=== PATIENT | female | born 1945 | race Caucasian/White ===

== ENCOUNTER 2016-12-03 06:54 | Day surgery (SDC) | payer MEDICARE, OTHER, MEDICAID ==
[2016-12-03] MEDS ORDERED: Lactated Ringers 1,000 ML IV SCH (07:00)
[2016-12-03] MEDS ORDERED: Lidocaine 1%/Sod Bicarbonate in NS 8.4% 1 ML Syringe PRN (07:00)
[2016-12-03] MEDS ORDERED: Sodium Chloride 0.9% 10 ML Syringe FLUSH PRN (07:00)
[2016-12-03] MEDS ORDERED: Propofol 200 MG/20 ML SDV ONE (07:18)
[2016-12-03] MEDS ORDERED: fentaNYL 100 MCG/2 ML SDV ONE (07:18)
--- NOTE | 2016-12-03 07:29 | PCM.PREANE ---
Preanesthetic Assessment - Procedure Proposed Procedure: Diagnostic EGD - Anesthesia/Transfusion/Family Hx Anesthesia History: Prior Anesthesia Without Reaction Family History of Anesthesia Reaction: No Transfusion History: Prior Transfusion Without Reaction - Review of Systems General: No Symptoms Pulmonary: Other (COPD, ENID with CPAP, ) Cardiovascular: Other (HTN, HLD) Gastrointestinal: Difficulty Swallowing, Other (GERD) Neurological: No Symptoms Other: Reports: Diabetes, Thyroid Problems - Physical Assessment NPO Status Date: 12/02/16 NPO Status Time: 22:00 Pulse: 99 O2 Sat by Pulse Oximetry: 95 Respiratory Rate: 18 Blood Pressure: 132/55 Temperature: 36.9 C Height: 1.52 m Weight: 102.965 kg ASA Class: 3 Mental Status: Alert & Oriented x3 Airway Class: Mallampati = 1 Dentition: Reports: Dentures (upper), Broken Tooth/Teeth (lower multiple missing and broken, states she is getting them pulled soon) Thyro-Mental Finger Breadths: 3 Mouth Opening Finger Breadths: 3 ROM/Head Extension: Full Lungs: Clear to Auscultation, Normal Respiratory Effort Cardiovascular: Regular Rate, Regular Rhythm - Allergies Allergies/Adverse Reactions: Allergies Allergy/AdvReac Type Severity Reaction Status Date / Time codeine Allergy Hives Verified 12/02/16 14:52 - Blood Blood Available: No Product(s) Available: None - Anesthesia Plan Pre-Op Medication Ordered: None Beta Juanpablo: Carvedilol Med Last Dose Date: 12/03/16 Med Last Dose Time: 06:00 - Acknowledgements Anesthesia Type Planned: MAC Pt an Appropriate Candidate for the Planned Anesthesia: Yes Alternatives and Risks of Anesthesia Discussed w Pt/Guardian: Yes Pt/Guardian Understands and Agrees with Anesthesia Plan: Yes PreAnesthesia Questionnaire HEENT History: Reports: Allergic Rhinitis, Impaired Vision Other HEENT History: wears glasses, aspiration, has dentures Cardiovascular History: Reports: Hypertension, Other (See Below) Other Cardiovascular History: edema Respiratory History: Reports: Asthma, COPD, Sleep Apnea, Other (See Below) Other Respiratory History: hypoxia Gastrointestinal History: Reports: GERD, Hiatal Hernia, Other (See Below) Other Gastrointestinal History: dysphagia, esophagitis Genitourinary History: Reports: Urinary Incontinence Musculoskeletal History: Reports: Gout, Osteoarthritis, Osteoporosis Neurological History: Reports: None Psychiatric History: Reports: Other (See Below) Other Psychiatric History: insomnia Endocrine/Metabolic History: Reports: Diabetes, Type II, Hypothyroidism, Obesity /BMI 30+ Hematologic History: Reports: Anemia, Other (See Below) Other Hematologic History: [id number] deficiency Immunologic History: Reports: None Oncologic (Cancer) History: Reports: None Dermatologic History: Reports: None - Past Surgical History HEENT Surgical History: Reports: Cataract Surgery Respiratory Surgical History: Reports: None GI Surgical History: Reports: Appendectomy, Cholecystectomy, EGD Female Surgical History: Reports: None Male Surgical History: Reports: None Endocrine Surgical History: Reports: None Neurological Surgical History: Reports: None Musculoskeletal Surgical History: Reports: Hip Replacement, Knee Replacement Oncologic Surgical History: Reports: None Dermatological Surgical History: Reports: None - SUBSTANCE USE Smoking Status *Q: Never Smoker Second Hand Smoke Exposure: No Days Per Week of Alcohol Use: 0 Recreational Drug Use History: No - HOME MEDS Home Medications: Home Meds Allopurinol [Zyloprim] 100 mg PO DAILY 12/25/14 [History] Aspirin 162 mg PO DAILY 12/25/14 [History] Benazepril [Lotensin] 10 mg PO DAILY 12/25/14 [History] Carvedilol [Coreg] 3.125 mg PO BID 12/25/14 [History] Cholecalciferol (Vitamin D3) [Vitamin D3] 800 units PO BID 12/25/14 [History] Esomeprazole [NexIUM] 20 mg PO DAILY 12/25/14 [History] Eszopiclone [Lunesta] 3 mg PO BEDTIME 12/25/14 [History] Fluticasone/Salmeterol [Advair 250-50] 1 puff INH BID 12/25/14 [History] Furosemide [Lasix] 40 mg PO BID 12/25/14 [History] Glimepiride [Amaryl] 2 mg PO DAILY 12/25/14 [History] Levothyroxine 125 mcg PO ACBREAKFAST 12/25/14 [History] Melatonin 6 mg PO BEDTIME 12/25/14 [History] Multivitamin [Multivitamins] 1 each PO DAILY 12/25/14 [History] Niacin [Niaspan] 750 mg PO BEDTIME 12/25/14 [History] Potassium Chloride [Klor-Con M20] 40 meq PO DAILY 12/25/14 [History] acetaZOLAMIDE [Diamox Sequels] 500 mg PO TUSA 12/25/14 [History] Ascorbic Acid [Vitamin C] 1,000 mg PO DAILY 07/12/15 [History] Cyanocobalamin (Vitamin B-12) [Vitamin B-12] 1,000 mcg PO DAILY 07/12/15 [ History] Calcium Carbonate [Calcium] 600 mg PO DAILY 12/02/16 [History] Lysine 500 mg PO DAILY 12/02/16 [History] - CURRENT (IN HOUSE) MEDS Current Meds: Current Medications Lactated Ringer's (Ringers, Lactated) 1,000 mls @ 125 mls/hr IV ASDIRECTED CANDICE Stop: 12/03/16 23:00 Lidocaine/Sodium Bicarbonate (Buffered Lidocaine 1% In Ns 8.4%) 0.25 ml .XX ONETIME PRN PRN Reason: Prior to IV Start Stop: 12/03/16 18:00 Sodium Chloride (Saline Flush) 10 ml FLUSH ASDIRECTED PRN PRN Reason: Keep Vein Open Stop: 12/03/16 18:00 Discontinued Medications Fentanyl (Sublimaze) Confirm Administered Dose 100 mcg .ROUTE .STK-MED ONE Stop: 12/03/16 07:19 Propofol (Diprivan 20 Ml) Confirm Administered Dose 200 mg .ROUTE .STK-MED ONE Stop: 12/03/16 07:19
--- NOTE | 2016-12-03 08:21 | PCM48HPAN ---
Post Anesthesia Note - EVALUATION WITHIN 48HRS OF ANESTHETIC Vital Signs in Normal Range: Yes Patient Participated in Evaluation: Yes Respiratory Function Stable: Yes Airway Patent: Yes Cardiovascular Function Stable: Yes Hydration Status Stable: Yes Pain Control Satisfactory: Yes Nausea and Vomiting Control Satisfactory: Yes Mental Status Recovered: Yes
--- NOTE | 2016-12-03 08:26 | PCM.OPNOTE ---
- General Post-Op/Procedure Note Date of Surgery/Procedure: 12/03/16 Operative Procedure(s): Esophagogastroduodenoscopy with antral biopsies, body of the stomach biopsies, GE junction biopsies, and proximal esophageal biopsies Findings: 1. Chronic atrophic gastritis 2. Mild antritis with a patulous pylorus 3. Slight narrowing of the GE junction without neftali strictures or rings Pre Op Diagnosis: Dysphagia Post-Op Diagnosis: 1. Chronic atrophic gastritis. 2. Mild antritis Anesthesia Technique: MAC, Moderate Sedation Primary Surgeon: Mik Davison Pathology: Antral, gastric body, GE junction, and proximal esophageal biopsies EBL in mLs: 0 Complications: None Condition: Good Free Text/Narrative:: After adequate IV sedation and analgesia was obtained with monitoring the patient was placed on her left side. Through a bite-block lubricated upper endoscope was inserted into the esophagus and advanced under direct vision to the stomach where additional air was given. Chronic atrophic gastritis was endoscopically seen with clear loss of the rugal folds. There was antral erythema without neftali erosions or ulcerations. The pylorus was patulous. The scope was advanced through the pylorus into the second part of the duodenum. The second and first parts were endoscopically normal with no mass lesions or inflammatory changes seen. 2 biopsies were taken in the antrum for histologic review. The retroflexed view the fundus and cardiac regions were normal. The GE junction was slightly narrowed without neftali stricturing or Schatzki's rings. There was no hiatal hernia. 2 biopsies were taken of the stomach and GE junction. The body of the esophagus was unremarkable with no mass lesions or inflammatory changes. The proximal third of the esophagus was biopsied twice. The cricopharyngeus was slightly spastic. There was no neftali opening to a Zenker 's diverticulum seen. Photographs were taken for the patient and for the medical record. Air was removed as I finished the procedure which she tolerated well.
[2016-12-03 08:48] VITALS: BP 122/76
== END 2016-12-03 08:45 | disposition home or self-care (01) ==
LOC: JD.SDS 06:54
PROVIDERS: ATTEND Surgery
DX: K29.50 Unspecified chronic gastritis without bleeding (principal); B33.20 Viral carditis, unspecified; E11.9 Type 2 diabetes mellitus without complications; J44.9 Chronic obstructive pulmonary disease, unspecified; E66.01 Morbid (severe) obesity due to excess calories; Z68.42 Body mass index [BMI] 45.0-49.9, adult; G47.33 Obstructive sleep apnea (adult) (pediatric); Z99.89 Dependence on other enabling machines and devices; Z88.8 Allergy status to other drugs, medicaments and biological substances; Z79.82 Long term (current) use of aspirin; Z79.899 Other long term (current) drug therapy; Z90.49 Acquired absence of other specified parts of digestive tract; Z98.890 Other specified postprocedural states; Z96.659 Presence of unspecified artificial knee joint; Z96.649 Presence of unspecified artificial hip joint
CPT/HCPCS: 43239; 82962; J3010; J7120; 00740; 88305; 88342; J2704

== ENCOUNTER 2017-04-03 18:15 | Emergency (ER) | payer MEDICARE, OTHER, MEDICAID ==
[2017-04-03 18:29] VITALS: BP 132/73
--- NOTE | 2017-04-03 20:16 | EDM.PDOC ---
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 She states that she began feeling palpitations of a rapid heartbeat since this past summer 2016, and was diagnosed with atrial fibrillation on 02/23/2017. She was started on Xarelto per her PCP, Gina Vasquez. For reasons unclear, the propranolol was discontinued by Ms. Vasquez on 02/23/2017. The patient has not seen a Branch Associate Teller, and does not have an appointment until 05/26/2017. The patient subsequently saw her Hvac Refrigeration Technician, Dr. vEans, on 03/17/2017, who re -started her propranolol. The patient also states that she has been on Coreg BID for many years, but that her diastolic blood pressure was low yesterday, therefore she was instructed by Ms. Vasquez to decrease the dosage to once a day. Of note, while the patient's diastolic the BP was low, she was a asymptomatic. The patient states that she does not usually come to the ED when she has palpitations, because the heart rate is not very fast, typically around 120 bpm , as measured by a finger pulse oximeter. The last time she had rapid palpitations was a few weeks ago. She states that this afternoon she felt her heart racing, and found it to be 155 bpm. She denies having associated dyspnea, nausea, weakness, dizziness, or diaphoresis, although she acknowledges that she feels anxious. The rapid heart rate ceased about the time the patient arrived to the ED, and here in the ED, the patient has a normal sinus rhythm on her dye range operator. It is also noted that her oxygen saturation is 100% on room air. - Related Data Allergies Allergy/AdvReac Type Severity Reaction Status Date / Time codeine Allergy Hives Verified 12/02/16 14:52 Home Meds: Home Meds Allopurinol [Zyloprim] 100 mg PO DAILY 12/25/14 [History] Benazepril [Lotensin] 5 mg PO DAILY 12/25/14 [History] Carvedilol [Coreg] 6.25 mg PO BEDTIME 12/25/14 [History] Cholecalciferol (Vitamin D3) [Vitamin D3] 800 units PO BID 12/25/14 [History] Esomeprazole [NexIUM] 20 mg PO DAILY 12/25/14 [History] Fluticasone/Salmeterol [Advair 250-50] 1 puff INH BID 12/25/14 [History] Furosemide [Lasix] 40 mg PO BID 12/25/14 [History] Glimepiride [Amaryl] 2 mg PO DAILY 12/25/14 [History] Multivitamin [Multivitamins] 1 each PO DAILY 12/25/14 [History] Niacin [Niaspan] 750 mg PO DAILY 12/25/14 [History] Potassium Chloride [Klor-Con M20] 40 meq PO DAILY 12/25/14 [History] acetaZOLAMIDE [Diamox Sequels] 500 mg PO TUSA 12/25/14 [History] Ascorbic Acid [Vitamin C] 1,000 mg PO DAILY 07/12/15 [History] Cyanocobalamin (Vitamin B-12) [Vitamin B-12] 1,000 mcg PO DAILY 07/12/15 [ History] Denosumab [Prolia] 60 mg INJECT Q6M 04/03/17 [History] Eszopiclone [Lunesta] 3 mg PO BEDTIME 04/03/17 [History] Nitrofurantoin Monohyd/M-Cryst [Macrobid 100 mg Capsule] 1 cap PO Q12H #13 capsule 04/03/17 [Rx] Rivaroxaban [Xarelto] 10 mg PO BEDTIME 04/03/17 [History] Past Medical History HEENT History: Reports: Impaired Vision Other HEENT History: wears glasses Cardiovascular History: Reports: Afib (paroxysmal), High Cholesterol, Hypertension Respiratory History: Reports: COPD (Due to alpha-1 antitrypsin deficiency), Sleep Apnea Gastrointestinal History: Reports: Gastritis, GERD, Hiatal Hernia Genitourinary History: Reports: Urinary Incontinence Musculoskeletal History: Reports: Gout, Osteoarthritis, Osteoporosis Endocrine/Metabolic History: Reports: Diabetes, Type II, Hyperthyroidism (Grave disease), Obesity/BMI 30+ Hematologic History: Reports: Anemia - Past Surgical History HEENT Surgical History: Reports: Oral Surgery ([place] teeth extraction) GI Surgical History: Reports: Appendectomy, Cholecystectomy Musculoskeletal Surgical History: Reports: Hip Replacement (left), Knee Replacement (right) Social & Family History - Tobacco Use Smoking Status *Q: Never Smoker Second Hand Smoke Exposure: No - Caffeine Use Caffeine Use: Reports: Soda - Alcohol Use Alcohol Use History: No Days Per Week of Alcohol Use: 0 - Recreational Drug Use Recreational Drug Use: No - Living Situation & Occupation Living situation: Reports: , Alone Occupation: Retired ED ROS GENERAL - Review of Systems Review Of Systems: ROS reveals no pertinent complaints other than HPI. ED EXAM, GENERAL - Physical Exam Exam: See Below Exam Limited By: No Limitations General Appearance: Alert, WD/WN, Anxious Eye Exam: Bilateral Eye: Normal Inspection Ears: Normal External Exam, Hearing Grossly Normal Nose: Normal Inspection, No Blood Throat/Mouth: Normal Inspection, Normal Lips, Normal Voice, No Airway Compromise Head: Atraumatic, Normocephalic Neck: Normal Inspection, Full Range of Motion Respiratory/Chest: No Respiratory Distress, Lungs Clear, Normal Breath Sounds, No Accessory Muscle Use Cardiovascular: Normal Peripheral Pulses, Regular Rate, Rhythm, No Gallop, No JVD, No Murmur, No Rub Peripheral Pulses: 4+: Radial (L), Radial (R) GI/Abdominal: Normal Bowel Sounds, Soft, Non-Tender, No Organomegaly, No Distention, No Abnormal Bruit, No Mass, Other (Obese) (Female) Exam: Deferred Rectal (Female) Exam: Deferred Back Exam: Normal Inspection, Full Range of Motion, NT Extremities: Normal Inspection, Normal Range of Motion, No Pedal Edema, Normal Capillary Refill Neurological: Alert, Oriented, Normal Cognition, No Motor/Sensory Deficits Psychiatric: Normal Affect Skin Exam: Warm, Dry, Intact, Normal Color, No Rash EKG INTERPRETATION EKG Date: 04/03/17 Time: 20:11 Rhythm: NSR Rate (Beats/Min): 65 [place]: Normal P-Wave: Present (1st degree AVB) QRS: Normal ST-T: Normal QT: Normal Comparison: No Change (07/12/2015) Course - Vital Signs Last Recorded V/S: Last Vital Signs Temp 36.4 C 04/03/17 18:28 Pulse 85 04/03/17 18:28 Resp 15 04/03/17 18:28 BP 132/73 04/03/17 18:28 Pulse Ox 100 04/03/17 18:28 - Orders/Labs/Meds Orders: Active Orders 24 hr Category Date Time Status EKG Documentation Completion [RC] ASDIRECTED Care 04/03/17 20:14 Inactive EKG Documentation Completion [RC] STAT Care 04/03/17 20:12 Active Chest 2V [CR] Stat Exams 04/03/17 20:12 Taken CULTURE URINE [RM] Stat Lab 04/03/17 21:00 Received EKG 12 Lead [EK] Stat Ther 04/03/17 20:14 Stop Req Labs: Laboratory Tests 04/03/17 04/03/17 04/03/17 Range/Units 20:12 21:00 21:10 WBC 11.35 H (3.98-10.04) K/mm3 RBC 4.34 (3.98-5.22) M/mm3 Hgb 12.0 (11.2-15.7) gm/L Hct 38.1 (34.1-44.9) % MCV 87.8 (79.4-94.8) fl MCH 27.6 (25.6-32.2) pg MCHC 31.5 L (32.2-35.5) g/dl RDW Std Deviation 45.4 (36.4-46.3) fL Plt Count 172 L (182-369) K/mm3 MPV 12.4 H (9.4-12.3) fl Neutrophils % (Manual) 68 H (40-60) % Band Neutrophils % 0 (0-10) % Lymphocytes % (Manual) 16 L (20-40) % Atypical Lymphs % 0 % Monocytes % (Manual) 1 L (2-10) % Eosinophils % (Manual) 14 H (0.7-5.8) % Basophils % (Manual) 1 (0.1-1.2) Platelet Estimate Adequate Poikilocytosis 1+ slight Ovalocytes 1+ slight RBC Morph Comment Not Reportable Puncture Site Rt radial ABG pH 7.45 (7.35-7.45) ABG pCO2 35.6 (35.0-45.0) mmHg ABG pO2 67.0 L (80.0-100.0) mmHg ABG HCO3 24.3 (22.0-26.0) meq/L ABG O2 Saturation 95.7 L (96.0-97.0) % ABG Base Excess 1.0 (-2-2.0) Per Test Positive A-a Gradient Not Reportable FiO2 0.00 L (21.00-100.00) % Sodium (136-145) mEq/L Potassium (3.5-5.1) mEq/L Chloride (98-107) mEq/L Carbon Dioxide (21-32) mEq/L Anion Gap (5-15) BUN (7-18) mg/dL Creatinine (0.55-1.02) mg/dL Est Cr Clr Drug Dosing mL/min Estimated GFR (MDRD) (>60) mL/min BUN/Creatinine Ratio (14-18) Glucose (83-115) mg/dL Calcium (8.5-10.1) mg/dL Magnesium (1.8-2.4) mg/dl Total Bilirubin (0.2-1.0) mg/dL AST (15-37) U/L ALT (14-59) U/L Alkaline Phosphatase (46-116) U/L Troponin I (0.00-0.056) ng/mL Total Protein (6.4-8.2) g/dl Albumin (3.4-5.0) g/dl Globulin gm/dL Albumin/Globulin Ratio (1-2) TSH 3rd Generation (0.358-3.74) uIU/mL Urine Color Yellow (Yellow) Urine Appearance Slt cloudy H (Clear) Urine pH 5.5 (5.0-8.0) Ur Specific [place] 1.010 (1.005-1.030) Urine Protein Negative (Negative) Urine Glucose (UA) Negative (Negative) Urine Ketones Negative (Negative) Urine Occult Blood Negative (Negative) Urine Nitrite Negative (Negative) Urine Bilirubin Negative (Negative) Urine Urobilinogen 0.2 (0.2-1.0) Ur Leukocyte Esterase 1+ H (Negative) Urine RBC 0-5 (0-5) /hpf Urine WBC 10-20 H (0-5) /hpf Ur Epithelial Cells 0-5 (0-5) /hpf Urine Bacteria Many H (FEW) /hpf Urine Mucus Not seen (FEW) /hpf 04/03/17 Range/Units 21:10 WBC (3.98-10.04) K/mm3 RBC (3.98-5.22) M/mm3 Hgb (11.2-15.7) gm/L Hct (34.1-44.9) % MCV (79.4-94.8) fl MCH (25.6-32.2) pg MCHC (32.2-35.5) g/dl RDW Std Deviation (36.4-46.3) fL Plt Count (182-369) K/mm3 MPV (9.4-12.3) fl Neutrophils % (Manual) (40-60) % Band Neutrophils % (0-10) % Lymphocytes % (Manual) (20-40) % Atypical Lymphs % % Monocytes % (Manual) (2-10) % Eosinophils % (Manual) (0.7-5.8) % Basophils % (Manual) (0.1-1.2) Platelet Estimate Poikilocytosis Ovalocytes RBC Morph Comment Puncture Site ABG pH (7.35-7.45) ABG pCO2 (35.0-45.0) mmHg ABG pO2 (80.0-100.0) mmHg ABG HCO3 (22.0-26.0) meq/L ABG O2 Saturation (96.0-97.0) % ABG Base Excess (-2-2.0) Per Test A-a Gradient FiO2 (21.00-100.00) % Sodium 142 (136-145) mEq/L Potassium 4.1 (3.5-5.1) mEq/L Chloride 107 (98-107) mEq/L Carbon Dioxide 27 (21-32) mEq/L Anion Gap 12.1 (5-15) BUN 25 H (7-18) mg/dL Creatinine 1.0 (0.55-1.02) mg/dL Est Cr Clr Drug Dosing 37.81 mL/min Estimated GFR (MDRD) 54 (>60) mL/min BUN/Creatinine Ratio 25.0 H (14-18) Glucose 99 (83-115) mg/dL Calcium 9.0 (8.5-10.1) mg/dL Magnesium 2.1 (1.8-2.4) mg/dl Total Bilirubin 0.3 (0.2-1.0) mg/dL AST 22 (15-37) U/L ALT 25 (14-59) U/L Alkaline Phosphatase 137 H (46-116) U/L Troponin I < 0.017 (0.00-0.056) ng/mL Total Protein 6.4 (6.4-8.2) g/dl Albumin 3.0 L (3.4-5.0) g/dl Globulin 3.4 gm/dL Albumin/Globulin Ratio 0.9 L (1-2) TSH 3rd Generation 0.010 L (0.358-3.74) uIU/mL Urine Color (Yellow) Urine Appearance (Clear) Urine pH (5.0-8.0) Ur Specific [place] (1.005-1.030) Urine Protein (Negative) Urine Glucose (UA) (Negative) Urine Ketones (Negative) Urine Occult Blood (Negative) Urine Nitrite (Negative) Urine Bilirubin (Negative) Urine Urobilinogen (0.2-1.0) Ur Leukocyte Esterase (Negative) Urine RBC (0-5) /hpf Urine WBC (0-5) /hpf Ur Epithelial Cells (0-5) /hpf Urine Bacteria (FEW) /hpf Urine Mucus (FEW) /hpf Meds: Medications Discontinued Medications Generic Name Dose Route Start Last Admin Trade Name Freq PRN Reason Stop Dose Admin Nitrofurantoin Macrocrystals 100 mg 04/03/17 22:05 04/03/17 22:18 Macrobid PO 04/03/17 22:06 100 mg ONETIME ONE Administration - Re-Assessments/Exams Free Text/Narrative Re-Assessment/Exam: 04/03/17 20:51 Two-view chest radiograph reviewed. There is cardiomegaly, but no pulmonary vascular congestion to suggest decompensated CHF. No pleural effusions. Tortuous aorta. No focal infiltrate. No pneumothorax. There is hyperinflation and bilateral diaphragmatic flattening, consistent with COPD. Thoracic kyphosis noted. Formal read per the Radiologist pending. 04/03/17 22:06 The patient's ABG demonstrates a mild acute respiratory alkalosis. The patient's urinalysis, collected by quick catheter, is consistent with a UTI , with 10-20 WBCs and many bacteria. A urine culture has been ordered, and I will start the patient on oral Macrobid. Bactrim is contraindicated due to her oral potassium. 04/03/17 23:06 Test results discussed at length with the patient. The patient had reported the sensation of an elevated heart rate, although she was in a normal sinus rhythm here in the ED. Because of her history of atrial fibrillation, it is presumed that she experienced an episode of A. fib today, although other dysrhythmias are possible. Her workup revealed that she is hyperthyroid - it is already known that she has grave disease. Hyperthyroidism can increase the likelihood of developing atrial fibrillation, although it can also increase the likelihood of other tachydysrhythmias, as well. The patient decreased her Coreg from BID to once daily yesterday because her diastolic blood pressure was low, however, the patient states that she was not symptomatic at the time, therefore there was no indication to decrease the Coreg. I'm recommending that she return to a BID dosing. The patient was concerned that it was the decrease of her Coreg that precipitated the tachycardia today. I doubt that. Coreg may help to decrease the rate of atrial fibrillation, if the patient is in atrial fibrillation, but I do not believe that a 1 day decrease of Coreg dosing would itself precipitate atrial fibrillation. The patient was found to have an acute respiratory alkalosis, most likely due to anxiety. Hyperthyroidism can cause chronic respiratory alkalosis, but not acute. I am recommending that she follow-up with her PCP, Gina Vasquez, in that regard, to discuss anxiety treatment options. The patient was also found to have a UTI, and has been started on Macrobid. I will e-prescribe a seven-day course. I would like her to follow-up with Ms. Vasquez this coming 04/06/2017, to check on the urine culture results. Departure - Departure Time of Disposition: 23:06 Disposition: Home, Self-Care 01 Condition: Good Clinical Impression: Rapid palpitations, UTI (urinary tract infection), Hyperventilation syndrome, Hyperthyroidism Prescriptions: Nitrofurantoin Monohyd/M-Cryst [Macrobid 100 mg Capsule] 1 cap PO Q12H #13 capsule Instructions: Urinary Tract Infection, Adult Referrals: Gina Vasquez PA [Primary Care Provider] - Forms: ED Department Discharge Additional Instructions: You were seen in the emergency room for a rapid heartbeat this afternoon. Workup in the ER included blood work, an arterial blood gas, a urinalysis, an ECG, and a chest x-ray. Your workup confirmed that you have hyperthyroidism. It showed that you have been hyperventilating, likely due to anxiety, recently. It found that you have a urinary tract infection. We recommend that you resume your Coreg twice a day. You have been started on the antibiotic Macrobid. A prescription for this has been sent to the [facility], located in the [place] store. Take one tablet every 12 hours, starting tomorrow morning, 04/04/2017, as prescribed. Finish the entire prescription unless told otherwise by Gina Vasquez. Follow-up with Ms. Vasquez this coming 04/06/2017, to check on your urine culture results, as well as to discuss treatment options for anxiety. If any other problems, please do not hesitate to return to the ER. - My Orders Last 24 Hours: My Active Orders 04/03/17 20:12 EKG Documentation Completion [RC] STAT Chest 2V [CR] Stat 04/03/17 20:14 EKG Documentation Completion [RC] ASDIRECTED EKG 12 Lead [EK] Stat 04/03/17 21:00 CULTURE URINE [RM] Stat - Assessment/Plan Last 24 Hours: My Active Orders 04/03/17 20:12 EKG Documentation Completion [RC] STAT Chest 2V [CR] Stat 04/03/17 20:14 EKG Documentation Completion [RC] ASDIRECTED EKG 12 Lead [EK] Stat 04/03/17 21:00 CULTURE URINE [RM] Stat
[2017-04-03] MEDS ORDERED: Nitrofurantoin Monohydrate/Macrocrystalline 100 MG Cap PO ONE (22:05)
--- NOTE | 2017-04-04 14:06 | CR ---
Chest: Two views of the chest were obtained. Comparison: Previous chest x-ray of 09/26/10. Heart is slightly enlarged. Upper mediastinum is normal. Lungs are clear. Bony structures show scoliosis within the spine with diffuse flowing osteophytes being seen anteriorly within the spine. Surgical clips are noted from prior cholecystectomy. Impression: 1. Incidental findings. Nothing acute is identified on two-view chest x-ray. Diagnostic code #2
== END 2017-04-03 23:30 | disposition home or self-care (01) ==
LOC: JD.ED 18:15
DX: F45.8 Other somatoform disorders (principal); E05.00 Thyrotoxicosis with diffuse goiter without thyrotoxic crisis or storm; N39.0 Urinary tract infection, site not specified; I48.91 Unspecified atrial fibrillation; I10 Essential (primary) hypertension; E11.9 Type 2 diabetes mellitus without complications; E78.00 Pure hypercholesterolemia, unspecified; J44.9 Chronic obstructive pulmonary disease, unspecified; Z88.5 Allergy status to narcotic agent; Z79.899 Other long term (current) drug therapy
CPT/HCPCS: 36415; 36600; 71046; 80053; 81001; 82803; 83735; 84443; 84484; 85025; 87086; 87088; 87186; 93005; 99285; A9270; P9612

== ENCOUNTER 2018-03-08 11:55 | Emergency (ER) | payer OTHER, MEDICARE, MEDICAID ==
[2018-03-08 12:16] VITALS: BP 140/88
--- NOTE | 2018-03-08 13:19 | CR ---
Right knee: Four views of the right knee were obtained. Comparison: Previous right knee study of 09/23/10. Knee prosthesis is seen. Components are aligned. Bony structures are osteopenic. Soft tissue swelling is noted anterior to the proximal tibia. No acute fracture or other abnormality is seen. Impression: 1. Soft tissue swelling as noted above. Other incidental findings. No acute bony abnormality is identified. Diagnostic code #2
--- NOTE | 2018-03-08 14:19 | US ---
Right lower extremity deep venous ultrasound: Duplex and color flow imaging was obtained of the right common femoral, proximal greater saphenous, superficial femoral, popliteal, posterior tibial and peroneal veins. Left common femoral vein also evaluated. Findings: Hypoechoic area likely representing liquefying hematoma located anteriorly within the right knee in area of swelling. This finding measures approximately 5.2 x 1.2 x 5.7 cm Normal phasic flow, augmentation and compression are seen. Impression: 1. No evidence of deep venous thrombosis within the right lower extremity or left common femoral vein. 2. Hypoechoic area anteriorly within the right knee most likely representing liquefying hematoma with measurements as noted above. Diagnostic code #3
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
== END 2018-03-08 14:58 | disposition home or self-care (01) ==
LOC: JD.ED 11:55
DX: S80.11XA Contusion of right lower leg, initial encounter (principal); I48.91 Unspecified atrial fibrillation; E78.00 Pure hypercholesterolemia, unspecified; I10 Essential (primary) hypertension; J44.9 Chronic obstructive pulmonary disease, unspecified; E11.9 Type 2 diabetes mellitus without complications; Z79.899 Other long term (current) drug therapy; W22.8XXA Striking against or struck by other objects, initial encounter; Z79.01 Long term (current) use of anticoagulants
CPT/HCPCS: 36415; 73564-26-RT; 73564-RT; 80053; 85025; 85652; 86140; 93971-26-RT; 93971-RT; 99282; 99284-25

== ENCOUNTER 2018-03-28 13:17 | Emergency (ER) | payer OTHER, MEDICARE, MEDICAID ==
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
[2018-03-28 13:36] VITALS: BP 155/69
[2018-03-28] MEDS ORDERED: Doxycycline 100 MG Cap PO ONE (13:47)
== END 2018-03-28 14:35 | disposition home or self-care (01) ==
LOC: JD.ED 13:17
DX: L97.811 Non-pressure chronic ulcer of other part of right lower leg limited to breakdown of skin (principal); I10 Essential (primary) hypertension; J44.9 Chronic obstructive pulmonary disease, unspecified; Z79.899 Other long term (current) drug therapy
CPT/HCPCS: 87075; 87205; 99283; A9270

== ENCOUNTER 2018-05-02 18:59 | Emergency (ER) | payer MEDICARE, MEDICAID, OTHER ==
[2018-05-02 19:20] VITALS: BP 157/76
[2018-05-02] MEDS ORDERED: Sodium Chloride 0.9% 10 ML Syringe FLUSH PRN (19:20)
[2018-05-02] MEDS ORDERED: Albuterol/Ipratropium 3.0-0.5 MG/3 ML Neb Soln NEB ONE (19:21)
[2018-05-02] MEDS ORDERED: Ondansetron 4 MG/2 ML SDV IVPUSH ONE (19:22)
[2018-05-02] MEDS ORDERED: methylPREDNISolone Sodium Succinate 125 MG/2 ML SDV IVPUSH ONE (19:22)
--- NOTE | 2018-05-02 20:06 | EDM.PDOC ---
ED HPI GENERAL MEDICAL PROBLEM - General Chief Complaint: General Stated Complaint: RECENT KNEE SURGERY VERY WEAK Time Seen by Provider: 05/02/18 19:10 Source of Information: Reports: Patient, Family History Limitations: Reports: No Limitations - History of Present Illness INITIAL COMMENTS - FREE TEXT/NARRATIVE: The patient presents with generalized weakness and shortness of breath. She had a total knee replacement to the left knee last week. She was discharged 3 days ago. She has not been doing well at home. She needs lots of help and is more short of breath. 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 She went to the bathroom and she could not get up. Her oxygen saturations were 82%. When she arrived here, her oxygen saturations were 77%. She denies fever, chills, cough, congestion, runny nose, chest pain or abdominal pain. She does have nausea but no vomiting. She as no dysuria. Onset: Gradual Duration: Day(s): Location: Reports: Lower Extremity, Left (knee pain) Quality: Reports: Sharp Severity: Moderate Improves with: Reports: Immobilization Worsens with: Reports: Movement Associated Symptoms: Reports: Shortness of Breath. Denies: Chest Pain, Cough, Fever/Chills, Headaches, Nausea/Vomiting Treatments VENDER: Reports: Oxygen left knee Pain Score (Numeric/FACES): 4 - Related Data Allergies Allergy/AdvReac Type Severity Reaction Status Date / Time No Known Allergies Allergy Verified 05/02/18 19:20 Home Meds: Home Meds Allopurinol [Zyloprim] 100 mg PO DAILY 12/25/14 [History] Benazepril [Lotensin] 5 mg PO DAILY 12/25/14 [History] Carvedilol [Coreg] 3.125 mg PO BID 12/25/14 [History] Cholecalciferol (Vitamin D3) [Vitamin D3] 800 units PO BID 12/25/14 [History] Esomeprazole [NexIUM] 40 mg PO DAILY 12/25/14 [History] Fluticasone/Salmeterol [Advair 250-50] 1 puff INH BID 12/25/14 [History] Furosemide [Lasix] 40 mg PO DAILY 12/25/14 [History] Glimepiride [Amaryl] 2 mg PO DAILY 12/25/14 [History] Potassium Chloride [Klor-Con M20] 40 meq PO DAILY 12/25/14 [History] Ascorbic Acid [Vitamin C] 500 mg PO DAILY 07/12/15 [History] Cyanocobalamin (Vitamin B-12) [Vitamin B-12] 1,000 mcg PO DAILY 07/12/15 [ History] Denosumab [Prolia] 60 mg INJECT Q6M 04/03/17 [History] Eszopiclone [Lunesta] 3 mg PO BEDTIME 04/03/17 [History] Rivaroxaban [Xarelto] 20 mg PO BEDTIME 04/03/17 [History] Acetaminophen/HYDROcodone [[place] 325-5 MG] 1 tab PO Q6H PRN #14 tablet 02/03/18 [Rx] Albuterol Sulfate [Albuterol Sulfate Hfa] 2 gm IH Q4HR PRN 05/02/18 [History] Apixaban [Eliquis] 2.5 mg PO BID 05/02/18 [History] Calcium Carbonate [Calcium] 600 mg PO DAILY 05/02/18 [History] Clindamycin HCl 300 mg PO TID 05/02/18 [History] Cpap 10 cm INH BEDTIME 05/02/18 [History] Docusate Sodium [Colace] 100 mg PO BID 05/02/18 [History] Hydrocodone/Acetaminophen [[place] 10-325 Tablet] 1 each PO Q4H PRN 05/02/18 [ History] Melatonin 3 mg PO BEDTIME PRN 05/02/18 [History] atorvaSTATin [Lipitor] 10 mg PO BEDTIME 05/02/18 [History] traMADol [Ultram] 50 mg PO Q6H PRN 05/02/18 [History] Past Medical History HEENT History: Reports: Impaired Vision Other HEENT History: wears glasses Cardiovascular History: Reports: Afib, High Cholesterol, Hypertension Other Cardiovascular History: edema Respiratory History: Reports: COPD, Sleep Apnea Other Respiratory History: hypoxia Gastrointestinal History: Reports: Gastritis, GERD, Hiatal Hernia Other Gastrointestinal History: dysphagia, esophagitis Genitourinary History: Reports: Urinary Incontinence Musculoskeletal History: Reports: Gout, Osteoarthritis, Osteoporosis Neurological History: Reports: None Psychiatric History: Reports: Other (See Below) Other Psychiatric History: insomnia Endocrine/Metabolic History: Reports: Diabetes, Type II, Hyperthyroidism, Obesity/BMI 30+ Hematologic History: Reports: Anemia Other Hematologic History: [id number] deficiency Immunologic History: Reports: None Oncologic (Cancer) History: Reports: None Dermatologic History: Reports: None - Past Surgical History HEENT Surgical History: Reports: Oral Surgery GI Surgical History: Reports: Appendectomy, Cholecystectomy Neurological Surgical History: Reports: None Musculoskeletal Surgical History: Reports: Hip Replacement, Knee Replacement Oncologic Surgical History: Reports: None Dermatological Surgical History: Reports: None Social & Family History - Family History Family Medical History: Noncontributory - Tobacco Use Smoking Status *Q: Never Smoker Second Hand Smoke Exposure: No - Caffeine Use Caffeine Use: Reports: Soda - Recreational Drug Use Recreational Drug Use: No - Living Situation & Occupation Living situation: Reports: , Alone Occupation: Retired ED ROS GENERAL - Review of Systems Review Of Systems: See Below Constitutional: Reports: No Symptoms HEENT: Reports: No Symptoms Respiratory: Reports: Shortness of Breath. Denies: Cough Cardiovascular: Reports: No Symptoms Endocrine: Reports: No Symptoms GI/Abdominal: Reports: Nausea. Denies: Abdominal Pain, Vomiting : Reports: No Symptoms Musculoskeletal: Reports: No Symptoms Skin: Reports: No Symptoms ED EXAM, GENERAL - Physical Exam Exam: See Below Exam Limited By: No Limitations General Appearance: Alert, No Apparent Distress Ears: Normal External Exam Nose: Normal Inspection Head: Atraumatic, Normocephalic Neck: Normal Inspection Respiratory/Chest: No Respiratory Distress, Decreased Breath Sounds Cardiovascular: Regular Rate, Rhythm, No Edema, No Murmur GI/Abdominal: Soft, Non-Tender, No Organomegaly, No Mass Back Exam: Normal Inspection Extremities: Other (Hose to the left leg. Mild edema) EKG INTERPRETATION EKG Date: 05/02/18 Time: 19:29 Rhythm: NSR Rate (Beats/Min): 82 Ada: Normal P-Wave: Present QRS: Normal ST-T: Other (flattened T waves in the lateral leads) Course - Vital Signs Last Recorded V/S: Last Vital Signs Temp 97.9 F 05/02/18 19:13 Pulse 94 05/02/18 19:13 Resp 25 H 05/02/18 19:13 BP 157/76 H 05/02/18 19:13 Pulse Ox 98 05/02/18 19:36 - Orders/Labs/Meds Orders: Active Orders 24 hr Category Date Time Status Cardiac Monitoring [RC] . DIRECTED Care 05/02/18 19:20 Active EKG Documentation Completion [RC] STAT Care 05/02/18 19:21 Active Oxygen Therapy [RC] PRN Care 05/02/18 19:20 Active Peripheral IV Care [RC] . DIRECTED Care 05/02/18 19:21 Active RT Aerosol Therapy [RC] ASDIRECTED Care 05/02/18 19:21 Active Chest 1V Frontal [CR] Stat Exams 05/02/18 19:21 Taken TSH [CHEM] Stat Lab 05/02/18 19:45 Received Sodium Chloride 0.9% [Saline Flush] Med 05/02/18 19:20 Active 10 ml FLUSH ASDIRECTED PRN Peripheral IV Insertion Adult [OM.PC] Stat Oth 05/02/18 19:20 Ordered Medication Orders Sodium Chloride (Saline Flush) 10 ml FLUSH ASDIRECTED PRN PRN Reason: Keep Vein Open Last Admin: 05/02/18 19:43 Dose: 10 ml Labs: Laboratory Tests 05/02/18 05/02/18 05/02/18 Range/Units 19:45 19:45 19:45 WBC 14.32 H (3.98-10.04) K/mm3 RBC 3.87 L (3.98-5.22) M/mm3 Hgb 10.7 L (11.2-15.7) gm/L Hct 34.0 L (34.1-44.9) % MCV 87.9 (79.4-94.8) fl MCH 27.6 (25.6-32.2) pg MCHC 31.5 L (32.2-35.5) g/dl RDW Std Deviation 42.8 (36.4-46.3) fL Plt Count 144 L (182-369) K/mm3 MPV 13.5 H (9.4-12.3) fl Neut % (Auto) 84.1 H (34.0-71.1) % Lymph % (Auto) 5.5 L (19.3-51.7) % Benson % (Auto) 9.7 (4.7-12.5) % Eos % (Auto) 0.4 L (0.7-5.8) Baso % (Auto) 0.1 (0.1-1.2) % Neut # (Auto) 12.03 H (1.56-6.13) K/mm3 Lymph # (Auto) 0.79 L (1.18-3.74) K/mm3 Benson # (Auto) 1.39 H (0.24-0.36) K/mm3 Eos # (Auto) 0.06 (0.04-0.36) K/mm3 Baso # (Auto) 0.02 (0.01-0.08) K/mm3 Manual Slide Review Abnormal smear Sodium 125 L (136-145) mEq/L Potassium 4.3 (3.5-5.1) mEq/L Chloride 91 L (98-107) mEq/L Carbon Dioxide 25 (21-32) mEq/L Anion Gap 13.3 (5-15) BUN 47 H (7-18) mg/dL Creatinine 1.6 H (0.55-1.02) mg/dL Est Cr Clr Drug Dosing 22.16 mL/min Estimated GFR (MDRD) 32 (>60) mL/min BUN/Creatinine Ratio 29.4 H (14-18) Glucose 62 L (83-115) mg/dL Calcium 8.7 (8.5-10.1) mg/dL Magnesium 2.0 (1.8-2.4) mg/dl Total Bilirubin 0.5 (0.2-1.0) mg/dL AST 42 H (15-37) U/L ALT 27 (14-59) U/L Alkaline Phosphatase 135 H (46-116) U/L Troponin I 0.325 H* (0.00-0.056) ng/mL NT-Pro-B Natriuret Pep 58175 H (0-125) pg/mL Total Protein 6.6 (6.4-8.2) g/dl Albumin 2.6 L (3.4-5.0) g/dl Globulin 4.0 gm/dL Albumin/Globulin Ratio 0.7 L (1-2) Urine Color (Yellow) Urine Appearance (Clear) Urine pH (5.0-8.0) Ur Specific [place] (1.005-1.030) Urine Protein (Negative) Urine Glucose (UA) (Negative) Urine Ketones (Negative) Urine Occult Blood (Negative) Urine Nitrite (Negative) Urine Bilirubin (Negative) Urine Urobilinogen (0.2-1.0) Ur Leukocyte Esterase (Negative) Urine RBC (0-5) /hpf Urine WBC (0-5) /hpf Ur Epithelial Cells (0-5) /hpf Urine Bacteria (FEW) /hpf Urine Mucus (FEW) /hpf 05/02/18 Range/Units 20:40 WBC (3.98-10.04) K/mm3 RBC (3.98-5.22) M/mm3 Hgb (11.2-15.7) gm/L Hct (34.1-44.9) % MCV (79.4-94.8) fl MCH (25.6-32.2) pg MCHC (32.2-35.5) g/dl RDW Std Deviation (36.4-46.3) fL Plt Count (182-369) K/mm3 MPV (9.4-12.3) fl Neut % (Auto) (34.0-71.1) % Lymph % (Auto) (19.3-51.7) % Benson % (Auto) (4.7-12.5) % Eos % (Auto) (0.7-5.8) Baso % (Auto) (0.1-1.2) % Neut # (Auto) (1.56-6.13) K/mm3 Lymph # (Auto) (1.18-3.74) K/mm3 Benson # (Auto) (0.24-0.36) K/mm3 Eos # (Auto) (0.04-0.36) K/mm3 Baso # (Auto) (0.01-0.08) K/mm3 Manual Slide Review Sodium (136-145) mEq/L Potassium (3.5-5.1) mEq/L Chloride (98-107) mEq/L Carbon Dioxide (21-32) mEq/L Anion Gap (5-15) BUN (7-18) mg/dL Creatinine (0.55-1.02) mg/dL Est Cr Clr Drug Dosing mL/min Estimated GFR (MDRD) (>60) mL/min BUN/Creatinine Ratio (14-18) Glucose (83-115) mg/dL Calcium (8.5-10.1) mg/dL Magnesium (1.8-2.4) mg/dl Total Bilirubin (0.2-1.0) mg/dL AST (15-37) U/L ALT (14-59) U/L Alkaline Phosphatase (46-116) U/L Troponin I (0.00-0.056) ng/mL NT-Pro-B Natriuret Pep (0-125) pg/mL Total Protein (6.4-8.2) g/dl Albumin (3.4-5.0) g/dl Globulin gm/dL Albumin/Globulin Ratio (1-2) Urine Color Yellow (Yellow) Urine Appearance Clear (Clear) Urine pH 6.0 (5.0-8.0) Ur Specific [place] 1.010 (1.005-1.030) Urine Protein Negative (Negative) Urine Glucose (UA) Negative (Negative) Urine Ketones Negative (Negative) Urine Occult Blood Negative (Negative) Urine Nitrite Negative (Negative) Urine Bilirubin Negative (Negative) Urine Urobilinogen 0.2 (0.2-1.0) Ur Leukocyte Esterase Negative (Negative) Urine RBC 0-5 (0-5) /hpf Urine WBC 0-5 (0-5) /hpf Ur Epithelial Cells 0-5 (0-5) /hpf Urine Bacteria Not seen (FEW) /hpf Urine Mucus Not seen (FEW) /hpf Meds: Medications Generic Name Dose Route Start Last Admin Trade Name Freq PRN Reason Stop Dose Admin Sodium Chloride 10 ml 05/02/18 19:20 05/02/18 19:43 Saline Flush FLUSH 10 ml ASDIRECTED PRN Administration Keep Vein Open Discontinued Medications Generic Name Dose Route Start Last Admin Trade Name Freq PRN Reason Stop Dose Admin Albuterol/Ipratropium 3 ml 05/02/18 19:21 05/02/18 19:32 Duoneb 3.0-0.5 Mg/3 Ml NEB 05/02/18 19:22 3 ml ONETIME ONE Administration Aspirin 324 mg 05/02/18 21:43 05/02/18 21:54 Aspirin PO 05/02/18 21:44 324 mg ONETIME ONE Administration Sodium Chloride 1,000 mls @ 150 mls/hr 05/02/18 21:45 Normal Saline IV ASDIRECTED CANDICE Methylprednisolone Sodium Succinate 125 mg 05/02/18 19:22 05/02/18 19:40 Solu-Medrol IVPUSH 05/02/18 19:23 125 mg ONETIME ONE Administration Ondansetron HCl 4 mg 05/02/18 19:22 05/02/18 19:39 Zofran IVPUSH 05/02/18 19:23 4 mg ONETIME ONE Administration - Re-Assessments/Exams Free Text/Narrative Re-Assessment/Exam: 05/02/18 20:07 I ordered oxygen, EKG, CXR, labs, duoneb, and solu-medrol 125mg IV. 05/02/18 22:08 Her EKG shows a NSR with some flipped T waves in the anterior leads and this is a change from prior. She has a prolonged QT. Her CXR shows a widened mediastinum but no change from prior. Her WBC was elevated at 14.32. Her Hgb was low at 10.7. Her platelets were low at 144. Her Na was low at 125. Her creatinine was elevated at 1.6. Her GFR was low at 32. In March these were normal. Her Troponin is elevated at 0.325. That was normal in March. Her BNP was elevated at 13,558. Her UA shows no UTI. I gave her some aspirin. I am concerned she may have had a nonSTEMI. I talked to out hospitalist and he felt she should go back to [facility]. I called [facility] and talked with Dr Sams with the hospitalist service and she accepted the patient. The patient again denied having any chest pain over the past few days. Departure - Departure Time of Disposition: 22:15 Disposition: DC/Tfer to Acute Hospital 02 Condition: Serious Clinical Impression: Non-STEMI (non-ST elevated myocardial infarction), Hypoxia, Hyponatremia, Elevated troponin, Renal insufficiency COPD (chronic obstructive pulmonary disease) Qualifiers: COPD type: unspecified COPD Qualified Code(s): J44.9 - Chronic obstructive pulmonary disease, unspecified CHF (congestive heart failure) Qualifiers: Heart failure type: unspecified Heart failure chronicity: unspecified Qualified Code(s): I50.9 - Heart failure, unspecified - Discharge Information Referrals: Helena Guadarrama BR[facility] ATTENDANT [Primary Care Provider] - Forms: ED Department Discharge - My Orders Last 24 Hours: My Active Orders 05/02/18 19:20 Cardiac Monitoring [RC] . DIRECTED Oxygen Therapy [RC] PRN Sodium Chloride 0.9% [Saline Flush] 10 ml FLUSH ASDIRECTED PRN Peripheral IV Insertion Adult [OM.PC] Stat 05/02/18 19:21 EKG Documentation Completion [RC] STAT Peripheral IV Care [RC] . DIRECTED RT Aerosol Therapy [RC] ASDIRECTED Chest 1V Frontal [CR] Stat 05/02/18 19:45 TSH [CHEM] Stat - Assessment/Plan Last 24 Hours: My Active Orders 05/02/18 19:20 Cardiac Monitoring [RC] . DIRECTED Oxygen Therapy [RC] PRN Sodium Chloride 0.9% [Saline Flush] 10 ml FLUSH ASDIRECTED PRN Peripheral IV Insertion Adult [OM.PC] Stat 05/02/18 19:21 EKG Documentation Completion [RC] STAT Peripheral IV Care [RC] . DIRECTED RT Aerosol Therapy [RC] ASDIRECTED Chest 1V Frontal [CR] Stat 05/02/18 19:45 TSH [CHEM] Stat
[2018-05-02] MEDS ORDERED: Aspirin 81 MG Tab.Chew PO ONE (21:43)
[2018-05-02] MEDS ORDERED: Sodium Chloride 0.9% 1,000 ML IV SCH (21:45)
--- NOTE | 2018-05-03 06:45 | CR ---
Chest: Portable view of the chest was obtained. Comparison: Previous chest x-ray of 02/03/18. Heart is enlarged. Mediastinum is prominent which is stable as well as well as being accentuated from portable technique. Lungs are clear with no acute parenchymal change. Scoliosis is noted within the spine. Impression: 1. Findings as noted above. No change from previous chest x-ray is seen. Diagnostic code #2
== END 2018-05-02 22:30 ==
LOC: JD.ED 18:59
DX: I21.4 Non-ST elevation (NSTEMI) myocardial infarction (principal); J44.9 Chronic obstructive pulmonary disease, unspecified; I11.0 Hypertensive heart disease with heart failure; I50.9 Heart failure, unspecified; E87.1 Hypo-osmolality and hyponatremia; N28.9 Disorder of kidney and ureter, unspecified; R79.89 Other specified abnormal findings of blood chemistry; R09.02 Hypoxemia; K21.9 Gastro-esophageal reflux disease without esophagitis; Z79.899 Other long term (current) drug therapy
CPT/HCPCS: 36415; 71045; 80053; 81001; 82962; 83735; 83880; 84443; 84484; 85025; 93005; 94640; 96374; 96375; 99285; A9270; J2405; J2930; 93010; J7620-GY

== ENCOUNTER 2018-05-28 13:48 | Emergency (ER) | payer MEDICARE, OTHER, MEDICAID ==
[2018-05-28 13:58] VITALS: BP 171/57
--- NOTE | 2018-05-28 14:03 | EDM.PDOC ---
ED HPI GENERAL MEDICAL PROBLEM - General Chief Complaint: Wound Recheck Stated Complaint: KNEE SURGERY/INCISION CHECK Time Seen by Provider: 05/28/18 13:56 Source of Information: Reports: Patient, RN Notes Reviewed History Limitations: Reports: No Limitations - History of Present Illness INITIAL COMMENTS - FREE TEXT/NARRATIVE: Patient is a 72-year-old female who presents to the ED for the evaluation of a wound recheck. She had her left knee replaced by Dr. Flower [facility] on April 29, 2018. She states that the surgery went well and that there were no complications from this. She notes that she had a visit from her home health nurse today and the home health nurse suggested that she get her surgical wound checked out as she felt there might be a possibility for infection. The patient denies any fever/chills, left knee pain, or pain in the incision. She is able to move her knee as appropriate. She states she is not having any gait abnormalities due to this. She notes that she has had cellulitis in the past and she believes that she finished up a prescription for clindamycin last week Thursday. She states that the wound was somewhat weepy with drainage this morning she did use triple antibiotic ointment on this. She tried to get into her clinic provider but there were no appointments available so she presents to the ED for evaluation. - Related Data Allergies Allergy/AdvReac Type Severity Reaction Status Date / Time No Known Allergies Allergy Verified 05/02/18 19:20 Home Meds: Home Meds Allopurinol [Zyloprim] 100 mg PO DAILY 12/25/14 [History] Benazepril [Lotensin] 5 mg PO DAILY 12/25/14 [History] Carvedilol [Coreg] 3.125 mg PO BID 12/25/14 [History] Cholecalciferol (Vitamin D3) [Vitamin D3] 800 units PO BID 12/25/14 [History] Esomeprazole [NexIUM] 40 mg PO DAILY 12/25/14 [History] Fluticasone/Salmeterol [Advair 250-50] 1 puff INH BID 12/25/14 [History] Furosemide [Lasix] 40 mg PO DAILY 12/25/14 [History] Glimepiride [Amaryl] 2 mg PO DAILY 12/25/14 [History] Potassium Chloride [Klor-Con M20] 40 meq PO DAILY 12/25/14 [History] Ascorbic Acid [Vitamin C] 500 mg PO DAILY 07/12/15 [History] Cyanocobalamin (Vitamin B-12) [Vitamin B-12] 1,000 mcg PO DAILY 07/12/15 [ History] Denosumab [Prolia] 60 mg INJECT Q6M 04/03/17 [History] Eszopiclone [Lunesta] 3 mg PO BEDTIME 04/03/17 [History] Rivaroxaban [Xarelto] 20 mg PO BEDTIME 04/03/17 [History] Acetaminophen/HYDROcodone [[place] 325-5 MG] 1 tab PO Q6H PRN #14 tablet 02/03/18 [Rx] Albuterol Sulfate [Albuterol Sulfate Hfa] 2 gm IH Q4HR PRN 05/02/18 [History] Apixaban [Eliquis] 2.5 mg PO BID 05/02/18 [History] Calcium Carbonate [Calcium] 600 mg PO DAILY 05/02/18 [History] Clindamycin HCl 300 mg PO TID 05/02/18 [History] Cpap 10 cm INH BEDTIME 05/02/18 [History] Docusate Sodium [Colace] 100 mg PO BID 05/02/18 [History] Hydrocodone/Acetaminophen [[place] 10-325 Tablet] 1 each PO Q4H PRN 05/02/18 [ History] Melatonin 3 mg PO BEDTIME PRN 05/02/18 [History] atorvaSTATin [Lipitor] 10 mg PO BEDTIME 05/02/18 [History] traMADol [Ultram] 50 mg PO Q6H PRN 05/02/18 [History] Doxycycline Hyclate 100 mg PO BID #14 capsule 05/28/18 [Rx] Past Medical History HEENT History: Reports: Impaired Vision Other HEENT History: wears glasses Cardiovascular History: Reports: Afib, High Cholesterol, Hypertension Other Cardiovascular History: edema Respiratory History: Reports: COPD, Sleep Apnea Other Respiratory History: hypoxia Gastrointestinal History: Reports: Gastritis, GERD, Hiatal Hernia Other Gastrointestinal History: dysphagia, esophagitis Genitourinary History: Reports: Urinary Incontinence Musculoskeletal History: Reports: Gout, Osteoarthritis, Osteoporosis Neurological History: Reports: None Psychiatric History: Reports: Other (See Below) Other Psychiatric History: insomnia Endocrine/Metabolic History: Reports: Diabetes, Type II, Hyperthyroidism, Obesity/BMI 30+ Hematologic History: Reports: Anemia Other Hematologic History: [id number] deficiency Immunologic History: Reports: None Oncologic (Cancer) History: Reports: None Dermatologic History: Reports: None - Past Surgical History HEENT Surgical History: Reports: Oral Surgery GI Surgical History: Reports: Appendectomy, Cholecystectomy Neurological Surgical History: Reports: None Musculoskeletal Surgical History: Reports: Hip Replacement, Knee Replacement Oncologic Surgical History: Reports: None Dermatological Surgical History: Reports: None Social & Family History - Family History Family Medical History: Noncontributory - Caffeine Use Caffeine Use: Reports: Soda - Living Situation & Occupation Living situation: Reports: , Alone Occupation: Retired ED ROS GENERAL - Review of Systems Review Of Systems: See Below Constitutional: Denies: Fever, Chills HEENT: Reports: No Symptoms Respiratory: Reports: No Symptoms Cardiovascular: Reports: No Symptoms Endocrine: Reports: No Symptoms GI/Abdominal: Reports: No Symptoms : Reports: No Symptoms Musculoskeletal: Denies: Leg Pain, Joint Pain Skin: Reports: Erythema (Slight around the knee wound), Wound (Knee replacement , left knee done on 04/29/18) Neurological: Reports: No Symptoms Psychiatric: Reports: No Symptoms Hematologic/Lymphatic: Reports: No Symptoms Immunologic: Reports: No Symptoms ED EXAM, SKIN/RASH Exam: See Below Exam Limited By: No Limitations General Appearance: Alert, WD/WN, No Apparent Distress Eye Exam: Bilateral Eye: Normal Inspection Ears: Normal External Exam Nose: Normal Inspection Throat/Mouth: Normal Inspection, Normal Lips, Normal Oropharynx, Normal Voice, No Airway Compromise Head: Atraumatic, Normocephalic Neck: Normal Inspection Respiratory/Chest: No Respiratory Distress, Lungs Clear, Normal Breath Sounds, No Accessory Muscle Use, Chest Non-Tender Cardiovascular: Normal Peripheral Pulses, Regular Rate, Rhythm, No Murmur Peripheral Pulses: 3+: Dorsalis Pedis (L), Dorsalis Pedis (R) Extremities: Normal Inspection, Normal Range of Motion (of left knee joint), Non -Tender (Left knee joint is non-tender to movement and palpation. ), Normal Capillary Refill, Increased Warmth (Of left knee around the surgical wound), Redness (Of left knee around the surgical wound, this is very slight). No: Joint Swelling, Leg Pain, Limited Range of Motion Neurological: Alert, Oriented, Normal Gait, No Motor/Sensory Deficits Psychiatric: Normal Affect, Normal Mood Skin: Warm, Dry, Normal Color, Wound/Incision (Surgical knee replacement wound noted to left knee, this is slightly reddened and warm to the touch. This is not tender or fluctuant.) Location, Skin: Lower Extremity, Left Characteristics: Patchy, Erythematous Associated features: Warmth, Weeping Course - Vital Signs Last Recorded V/S: Last Vital Signs Temp 96.7 F 05/28/18 13:54 Pulse 74 05/28/18 13:54 Resp 18 05/28/18 13:54 BP 171/57 H 05/28/18 13:54 Pulse Ox 93 L 05/28/18 13:54 - Orders/Labs/Meds Orders: Active Orders 24 hr Category Date Time Status CULTURE WOUND [RM] Stat Lab 05/28/18 14:30 Ordered - Re-Assessments/Exams Free Text/Narrative Re-Assessment/Exam: 05/28/18 14:38 Patient presents to the ED for the evaluation of a wound recheck of her surgical incision on her left knee. It is likely that she has a small amount of cellulitis around the wound. As she has been on clindamycin previously we will start her on doxycycline 100 mg twice daily for 7 days. She will be directed to follow up with Dr. Flower on her regular appointment next week Thursday , however I feel that she should be seen in the interim and we'll suggest that she be evaluated by Taylor Vasquez, her PCP, early to mid next week for a wound recheck. Departure - Departure Time of Disposition: 14:40 Disposition: Home, Self-Care 01 Condition: Fair Clinical Impression: Cellulitis Qualifiers: Site of cellulitis: extremity Site of cellulitis of extremity: lower extremity Laterality: left Qualified Code(s): L03.116 - Cellulitis of left lower limb - Discharge Information *PRESCRIPTION DRUG MONITORING PROGRAM REVIEWED*: No *COPY OF PRESCRIPTION DRUG MONITORING REPORT IN PATIENT NAZANIN: No Prescriptions: Doxycycline Hyclate 100 mg PO BID #14 capsule Instructions: Cellulitis, Adult, Wound Infection, [id number] Referrals: Taylor Vasquez PA [Primary Care Provider] - Forms: ED Department Discharge Additional Instructions: You have been evaluated in the ED today for a wound recheck of your surgical wound on your left knee. It is likely that you have a small cellulitis developing around this wound. You have been E-prescribed doxycycline 100 mg PO 1 tablet twice daily for 7 days. Please take your calcium supplement either 2 hours ahead of taking the doxycycline or 2 hours after the doxycycline as the calcium inhibits the absorption of the doxycycline in your system. This medication was electronically sent to the [place] pharmacy located in the [employer] store. You will be notified of the results of the wound culture if you need a change in antibiotics. Please keep your appointment with Dr. Flower for next week Thursday for your follow- up, you may try to see if he will evaluate you sooner, or please follow up with your PCP, Taylor Vasquez early to mid next week for a follow-up on the cellulitis and wound recheck. Please return to the ED if your symptoms change or worsen - My Orders Last 24 Hours: My Active Orders 05/28/18 14:30 CULTURE WOUND [RM] Stat - Assessment/Plan Last 24 Hours: My Active Orders 05/28/18 14:30 CULTURE WOUND [RM] Stat
== END 2018-05-28 14:55 | disposition home or self-care (01) ==
LOC: JD.ED 13:48
DX: L03.116 Cellulitis of left lower limb (principal); I10 Essential (primary) hypertension; J44.9 Chronic obstructive pulmonary disease, unspecified; E11.9 Type 2 diabetes mellitus without complications; E66.9 Obesity, unspecified; Z48.89 Encounter for other specified surgical aftercare; Z79.899 Other long term (current) drug therapy
CPT/HCPCS: 87070; 99283

== ENCOUNTER 2019-02-18 16:14 | Emergency (ER) | payer MEDICARE, OTHER, MEDICAID ==
[2019-02-18 16:25] VITALS: BP 150/65; PULSE 81
[2019-02-18] MEDS ORDERED: Sodium Chloride 0.9% 10 ML Syringe FLUSH PRN (16:29)
--- NOTE | 2019-02-18 16:54 | EDM.PDOC ---
ED HPI GENERAL MEDICAL PROBLEM - General Chief Complaint: Respiratory Problem Stated Complaint: [facility] Time Seen by Provider: 02/18/19 16:25 Source of Information: Reports: Patient, RN Notes Reviewed History Limitations: Reports: No Limitations - History of Present Illness INITIAL COMMENTS - FREE TEXT/NARRATIVE: Patient is a 73-year-old female who is brought to the ED via [facility] for the evaluation of shortness of breath. The patient notes for around one week now, she is been having increased shortness of breath , and she feels generally weak, she states that when she walks she feels as if her legs when a buckle in her knees. She does note mildly increased blood pressure at home, systolically 140 to the 150s. She states her normal is 120 or below systolically. She notes that her primary care provider is Dr. Argelia Maxwell, and she recently had a checkup with her, and everything was well at that time. Patient denies any sort of chest pain. She denies any nausea/vomiting/ diarrhea. Patient notes she does take 40 mg of Lasix in the morning. And she has noted a weight gain of around 5 pounds, but she also states she spent weighed herself in a while. She does also appreciate some mild increased edema on her lower extremities. Patient does have home oxygen, and states she has been using her oxygen more during the day. Of note this oxygen is ordered when necessary for nightly use. Right Chest Pain Score (Numeric/FACES): 2 - Related Data Allergies Allergy/AdvReac Type Severity Reaction Status Date / Time No Known Allergies Allergy Verified 02/18/19 16:21 Home Meds: Home Meds Allopurinol [Zyloprim] 100 mg PO DAILY 12/25/14 [History] Benazepril [Lotensin] 5 mg PO DAILY 12/25/14 [History] Carvedilol [Coreg] 3.125 mg PO BID 12/25/14 [History] Cholecalciferol (Vitamin D3) [Vitamin D3] 800 units PO BID 12/25/14 [History] Esomeprazole [NexIUM] 40 mg PO DAILY 12/25/14 [History] Fluticasone/Salmeterol [Advair 250-50] 1 puff INH BID 12/25/14 [History] Furosemide [Lasix] 40 mg PO DAILY 12/25/14 [History] Glimepiride [Amaryl] 2 mg PO DAILY 12/25/14 [History] Potassium Chloride [Klor-Con M20] 40 meq PO DAILY 12/25/14 [History] Ascorbic Acid [Vitamin C] 500 mg PO DAILY 07/12/15 [History] Cyanocobalamin (Vitamin B-12) [Vitamin B-12] 1,000 mcg PO DAILY 07/12/15 [ History] Denosumab [Prolia] 60 mg INJECT Q6M 04/03/17 [History] Eszopiclone [Lunesta] 3 mg PO BEDTIME 04/03/17 [History] Rivaroxaban [Xarelto] 20 mg PO BEDTIME 04/03/17 [History] Albuterol Sulfate [Albuterol Sulfate Hfa] 2 gm IH Q4HR PRN 05/02/18 [History] Apixaban [Eliquis] 2.5 mg PO BID 05/02/18 [History] Calcium Carbonate [Calcium] 600 mg PO DAILY 05/02/18 [History] Cpap 10 cm INH BEDTIME 05/02/18 [History] Docusate Sodium [Colace] 100 mg PO BID 05/02/18 [History] Hydrocodone/Acetaminophen [[place] 10-325 Tablet] 1 each PO Q4H PRN 05/02/18 [ History] Melatonin 3 mg PO BEDTIME PRN 05/02/18 [History] atorvaSTATin [Lipitor] 10 mg PO BEDTIME 05/02/18 [History] traMADol [Ultram] 50 mg PO Q6H PRN 05/02/18 [History] cephALEXin [Cephalexin] 500 mg PO BID #14 capsule 02/18/19 [Rx] Past Medical History HEENT History: Reports: Impaired Vision Other HEENT History: wears glasses Cardiovascular History: Reports: Afib, High Cholesterol, Hypertension Other Cardiovascular History: edema Respiratory History: Reports: COPD, Sleep Apnea Other Respiratory History: hypoxia Gastrointestinal History: Reports: Gastritis, GERD, Hiatal Hernia Other Gastrointestinal History: dysphagia, esophagitis Genitourinary History: Reports: Urinary Incontinence Musculoskeletal History: Reports: Gout, Osteoarthritis, Osteoporosis Neurological History: Reports: None Psychiatric History: Reports: Other (See Below) Other Psychiatric History: insomnia Endocrine/Metabolic History: Reports: Diabetes, Type II, Hyperthyroidism, Obesity/BMI 30+ Hematologic History: Reports: Anemia Other Hematologic History: [id number] deficiency Immunologic History: Reports: None Oncologic (Cancer) History: Reports: None Dermatologic History: Reports: None - Past Surgical History HEENT Surgical History: Reports: Oral Surgery GI Surgical History: Reports: Appendectomy, Cholecystectomy Neurological Surgical History: Reports: None Musculoskeletal Surgical History: Reports: Hip Replacement, Knee Replacement Oncologic Surgical History: Reports: None Dermatological Surgical History: Reports: None Social & Family History - Family History Family Medical History: Noncontributory - Tobacco Use Smoking Status *Q: Never Smoker - Caffeine Use Caffeine Use: Reports: Soda - Living Situation & Occupation Living situation: Reports: , Alone Occupation: Retired ED ROS GENERAL - Review of Systems Review Of Systems: See Below Constitutional: Denies: Fever, Chills Respiratory: Reports: Shortness of Breath. Denies: Wheezing, Cough Cardiovascular: Reports: Blood Pressure Problem, Dyspnea on Exertion, Edema. Denies: Chest Pain, Lightheadedness, Palpitations GI/Abdominal: Denies: Abdominal Pain, Constipation, Diarrhea, Nausea, Vomiting Skin: Denies: Cyanosis Neurological: Reports: Weakness (generalized). Denies: Dizziness, Trouble Speaking, Difficulty Walking ED EXAM, GENERAL - Physical Exam Exam: See Below Exam Limited By: No Limitations General Appearance: Alert, WD/WN, No Apparent Distress Eye Exam: Bilateral Eye: EOMI, Normal Inspection, PERRL Ears: Normal External Exam, Normal Canal, Hearing Grossly Normal, Normal TMs Nose: Normal Inspection Throat/Mouth: Normal Inspection, Normal Lips, Normal Teeth, Normal Gums, Normal Oropharynx, Normal Voice, No Airway Compromise Head: Atraumatic, Normocephalic Neck: Normal Inspection Respiratory/Chest: No Respiratory Distress, Lungs Clear, Normal Breath Sounds, No Accessory Muscle Use, Chest Non-Tender Cardiovascular: Normal Peripheral Pulses, Regular Rate, Rhythm, No Murmur Peripheral Pulses: 3+: Radial (L), Radial (R) GI/Abdominal: Normal Bowel Sounds, Soft, Non-Tender, No Distention, No Mass Extremities: Normal Inspection, Normal Capillary Refill, Pedal Edema (2-3+ pitting edema to bilateral lower extremities) Neurological: Alert, Oriented, Normal Cognition, No Motor/Sensory Deficits Psychiatric: Normal Affect, Normal Mood Skin Exam: Warm, Dry, Intact, Normal Color, No Rash EKG INTERPRETATION EKG Date: 02/18/19 Time: 16:45 Rhythm: NSR Rate (Beats/Min): 65 [place]: Normal P-Wave: Present QRS: Normal ST-T: Normal QT: Normal LA/PQ Interval: prolonged LA interval EKG Interpretation Comments: First-degree AV block. Reviewed by myself and Dr. Avery Course - Vital Signs Last Recorded V/S: Last Vital Signs Temp 98.4 F 02/18/19 16:21 Pulse 81 02/18/19 16:21 Resp 23 H 02/18/19 16:21 BP 150/65 H 02/18/19 16:21 Pulse Ox 88 L 02/18/19 16:21 - Orders/Labs/Meds Orders: Active Orders 24 hr Category Date Time Status EKG Documentation Completion [RC] STAT Care 02/18/19 16:28 Active Oxygen Therapy, ED [RC] ASDIRECTED Care 02/18/19 16:48 Active Peripheral IV Care [RC] . DIRECTED Care 02/18/19 16:30 Active Chest 2V [CR] Stat Exams 02/18/19 16:28 Taken CULTURE URINE [RM] Routine Lab 02/18/19 17:45 Received Peripheral IV Insertion Adult [OM.PC] Stat Oth 02/18/19 16:30 Ordered Labs: Laboratory Tests 02/18/19 02/18/19 02/18/19 Range/Units 17:10 17:10 17:10 WBC 8.60 (3.98-10.04) K/mm3 RBC 4.42 (3.98-5.22) M/mm3 Hgb 11.9 (11.2-15.7) gm/dl Hct 39.3 (34.1-44.9) % MCV 88.9 (79.4-94.8) fl MCH 26.9 (25.6-32.2) pg MCHC 30.3 L (32.2-35.5) g/dl RDW Std Deviation 44.9 (36.4-46.3) fL Plt Count 158 L (182-369) K/mm3 MPV 13.1 H (9.4-12.3) fl Neutrophils % (Manual) 87 H (40-60) % Band Neutrophils % 1 (0-10) % Lymphocytes % (Manual) 8 L (20-40) % Atypical Lymphs % 0 % Monocytes % (Manual) 3 (2-10) % Eosinophils % (Manual) 1 (0.7-5.8) % Basophils % (Manual) 0 L (0.1-1.2) Toxic Granulation Few Platelet Estimate Adequate RBC Morph Comment Normal PT (9.7-12.0) SECONDS INR APTT (22-31) SECONDS Sodium 138 (136-145) mEq/L Potassium 4.8 (3.5-5.1) mEq/L Chloride 102 (98-107) mEq/L Carbon Dioxide 31 (21-32) mEq/L Anion Gap 9.8 (5-15) BUN 23 H (7-18) mg/dL Creatinine 0.8 (0.55-1.02) mg/dL Est Cr Clr Drug Dosing 48.06 mL/min Estimated GFR (MDRD) > 60 (>60) mL/min BUN/Creatinine Ratio 28.8 H (14-18) Glucose 106 (83-115) mg/dL Calcium 9.5 (8.5-10.1) mg/dL Total Bilirubin 0.4 (0.2-1.0) mg/dL AST 23 (15-37) U/L ALT 20 (14-59) U/L Alkaline Phosphatase 96 (46-116) U/L Troponin I < 0.017 (0.00-0.056) ng/mL NT-Pro-B Natriuret Pep 326 (0-450) pg/mL Total Protein 7.0 (6.4-8.2) g/dl Albumin 3.3 L (3.4-5.0) g/dl Globulin 3.7 gm/dL Albumin/Globulin Ratio 0.9 L (1-2) TSH 3rd Generation (0.358-3.74) uIU/mL Urine Color (Yellow) Urine Appearance (Clear) Urine pH (5.0-8.0) Ur Specific [place] (1.005-1.030) Urine Protein (Negative) Urine Glucose (UA) (Negative) Urine Ketones (Negative) Urine Occult Blood (Negative) Urine Nitrite (Negative) Urine Bilirubin (Negative) Urine Urobilinogen (0.2-1.0) Ur Leukocyte Esterase (Negative) Urine RBC (0-5) /hpf Urine WBC (0-5) /hpf Ur Squamous Epith Cells (0-5) /hpf Urine Bacteria (FEW) /hpf Urine Mucus (FEW) /hpf 12/13/19 12/13/19 12/13/19 Range/Units 17:10 17:40 17:45 WBC (3.98-10.04) K/mm3 RBC (3.98-5.22) M/mm3 Hgb (11.2-15.7) gm/dl Hct (34.1-44.9) % MCV (79.4-94.8) fl MCH (25.6-32.2) pg MCHC (32.2-35.5) g/dl RDW Std Deviation (36.4-46.3) fL Plt Count (182-369) K/mm3 MPV (9.4-12.3) fl Neutrophils % (Manual) (40-60) % Band Neutrophils % (0-10) % Lymphocytes % (Manual) (20-40) % Atypical Lymphs % % Monocytes % (Manual) (2-10) % Eosinophils % (Manual) (0.7-5.8) % Basophils % (Manual) (0.1-1.2) Toxic Granulation Platelet Estimate RBC Morph Comment PT 10.9 (9.7-12.0) SECONDS INR 1.00 APTT 30 (22-31) SECONDS Sodium (136-145) mEq/L Potassium (3.5-5.1) mEq/L Chloride (98-107) mEq/L Carbon Dioxide (21-32) mEq/L Anion Gap (5-15) BUN (7-18) mg/dL Creatinine (0.55-1.02) mg/dL Est Cr Clr Drug Dosing mL/min Estimated GFR (MDRD) (>60) mL/min BUN/Creatinine Ratio (14-18) Glucose (83-115) mg/dL Calcium (8.5-10.1) mg/dL Total Bilirubin (0.2-1.0) mg/dL AST (15-37) U/L ALT (14-59) U/L Alkaline Phosphatase (46-116) U/L Troponin I (0.00-0.056) ng/mL NT-Pro-B Natriuret Pep (0-450) pg/mL Total Protein (6.4-8.2) g/dl Albumin (3.4-5.0) g/dl Globulin gm/dL Albumin/Globulin Ratio (1-2) TSH 3rd Generation 1.609 (0.358-3.74) uIU/mL Urine Color Light yellow (Yellow) Urine Appearance Clear (Clear) Urine pH 7.0 (5.0-8.0) Ur Specific [place] 1.015 (1.005-1.030) Urine Protein Negative (Negative) Urine Glucose (UA) Negative (Negative) Urine Ketones Negative (Negative) Urine Occult Blood Negative (Negative) Urine Nitrite Negative (Negative) Urine Bilirubin Negative (Negative) Urine Urobilinogen 0.2 (0.2-1.0) Ur Leukocyte Esterase Trace H (Negative) Urine RBC 0-5 (0-5) /hpf Urine WBC 5-10 H (0-5) /hpf Ur Squamous Epith Cells 0-5 (0-5) /hpf Urine Bacteria Few (FEW) /hpf Urine Mucus Not seen (FEW) /hpf Meds: Medications Discontinued Medications Generic Name Dose Route Start Last Admin Trade Name Freq PRN Reason Stop Dose Admin Furosemide 40 mg 02/18/19 18:47 02/18/19 18:52 Lasix IVPUSH 02/18/19 18:48 40 mg NOW ONE Administration Sodium Chloride 10 ml 02/18/19 16:29 02/18/19 17:45 Saline Flush FLUSH 10 ml ASDIRECTED PRN Administration Keep Vein Open - Re-Assessments/Exams Free Text/Narrative Re-Assessment/Exam: 02/18/19 16:56 Patient resents to the ED for evaluation of increased shortness of breath and generalized weakness. Did order EKG, chest x-ray, CBC, CMP, BNP, TSH, and an IV in place for initial management. An order for oxygen is also entered for PRN use. This seems to be more of an exacerbation of her CHF on initial impression. 02/18/19 18:49 Patient labs are done, and demonstrate no acute focal abnormalities. White blood cell count within normal limits however 87% neutrophils and 1% bands which is suggestive of left shift BNP is within normal limits at 326, troponin is negative. Due to the patient's symptoms however I will give her an extra dose of Lasix, 40 mg IV push for management. EKG is normal sinus with first- degree AV block, no acute ischemic changes noted. Reviewed by myself and Dr. Zoe Rubio. Chest x-ray also is not suggestive of any sort of consolidation or increased fluid. However official radiology read is pending. Departure - Departure Time of Disposition: 19:27 Disposition: Home, Self-Care 01 Condition: Fair Clinical Impression: Dyspnea on exertion - Discharge Information *PRESCRIPTION DRUG MONITORING PROGRAM REVIEWED*: No *COPY OF PRESCRIPTION DRUG MONITORING REPORT IN PATIENT NAZANIN: No Prescriptions: cephALEXin [Cephalexin] 500 mg PO BID #14 capsule Instructions: Shortness of Breath, Adult, [id number] Referrals: Argelia Maxwell MD [Primary Care Provider] - Forms: ED Department Discharge Additional Instructions: You were evaluated in the ER today regarding your increasing shortness of breath. Your laboratory evaluation was essentially within normal limits, you're not retaining too much fluid however with you reporting a 5 pound weight loss, you are given a dose of Lasix in the ER today for further management of this. Your urinalysis demonstrated a possible urine infection, he will be started on antibiotics for this. At this time, you may use your oxygen as needed at home for O2 sats less than 90 %. If he should develop a fever, cough that is productive, that would be cause for concern to return to the ER for management. Please return to the ER if your symptoms change or worsen. Sepsis Event Note - Evaluation Sepsis Screening Result: No Definite Risk - Focused Exam Vital Signs: Vital Signs Temp Pulse Resp BP Pulse Ox 02/18/19 16:21 98.4 F 81 23 H 150/65 H 88 L Date Exam was Performed: 02/18/19 Time Exam was Performed: 22:23 - My Orders Last 24 Hours: My Active Orders 02/18/19 16:28 EKG Documentation Completion [RC] STAT Chest 2V [CR] Stat 02/18/19 16:30 Peripheral IV Care [RC] . DIRECTED Peripheral IV Insertion Adult [OM.PC] Stat 02/18/19 16:48 Oxygen Therapy, ED [RC] ASDIRECTED 02/18/19 17:45 CULTURE URINE [RM] Routine - Assessment/Plan Last 24 Hours: My Active Orders 02/18/19 16:28 EKG Documentation Completion [RC] STAT Chest 2V [CR] Stat 02/18/19 16:30 Peripheral IV Care [RC] . DIRECTED Peripheral IV Insertion Adult [OM.PC] Stat 02/18/19 16:48 Oxygen Therapy, ED [RC] ASDIRECTED 02/18/19 17:45 CULTURE URINE [RM] Routine
[2019-02-18] MEDS ORDERED: Furosemide 40 MG/4 ML VIAL IVPUSH ONE (18:47)
--- NOTE | 2019-02-21 10:42 | CR ---
Chest: Two views of the chest were obtained. Comparison: Prior chest x-ray of 05/02/18. Heart is enlarged. Pulmonary vessels are slightly increased which appear chronic. No acute parenchymal change is seen. Pleural thickening is seen secondary to old left-sided rib fractures on the left side. Diffuse calcification within the anterior longitudinal ligament within the spine is seen. Bony structures are osteopenic with mild scoliosis. Impression: 1. Cardiomegaly. Other findings as described above. 2. Nothing acute is otherwise seen. Diagnostic code #3 This report was dictated in [place] Standard Time
== END 2019-02-18 20:00 | disposition home or self-care (01) ==
LOC: JD.ED 16:14 → SUPCPDRO 16:14 → JD.ED 20:00
DX: R06.02 Shortness of breath (principal); R53.1 Weakness; I10 Essential (primary) hypertension; E78.00 Pure hypercholesterolemia, unspecified; J44.9 Chronic obstructive pulmonary disease, unspecified; E11.9 Type 2 diabetes mellitus without complications; E66.9 Obesity, unspecified; Z68.41 Body mass index [BMI] 40.0-44.9, adult; Z79.01 Long term (current) use of anticoagulants; Z79.51 Long term (current) use of inhaled steroids; Z79.899 Other long term (current) drug therapy; Z79.84 Long term (current) use of oral hypoglycemic drugs
CPT/HCPCS: 36415; 71046; 80053; 81001; 83880; 84443; 84484; 85007; 85027; 85610; 85730; 87086; 87186; 93005; 96374; 99285; J1940; 93010; 99284

== ENCOUNTER 2019-09-08 16:02 | Emergency (ER) | payer MEDICARE, OTHER, MEDICAID ==
--- NOTE | 2019-09-08 16:41 | EDM.PDOC ---
ED HPI GENERAL MEDICAL PROBLEM - General Chief Complaint: General Stated Complaint: UNABLE TO SLEEP/SHAKY Time Seen by Provider: 09/08/19 16:22 Source of Information: Reports: Patient, Old Records (labs from june), RN Notes Reviewed History Limitations: Reports: No Limitations - History of Present Illness INITIAL COMMENTS - FREE TEXT/NARRATIVE: Patient is a 73-year-old female presents to the ED for the evaluation of a couple different complaints. She notes that she has been having longstanding issues with insomnia, but over the last week it is been exquisitely worse. She is currently on 3 mg Lunesta, and this does not seem to be helping her sleep at all. She states that last night she only got roughly 2 to 2-1/2 hours of sleep. Patient did try to reach out to her primary care provider, Dr. Argelia Maxwell, but states that the clinic did not answer the phone and she did not get to talk to her provider. Patient states that she feels a generalized shakiness, and fee ls somewhat unsteady on her feet, but she does use a walker for this. She also does wear oxygen on a as needed basis and with activity, and was wondering if her oxygen levels were a little bit lower than normal. O2 sats at time of ER triage ordered 90% on room air, but when she is sitting there calmly I have them at about 94% to 95% on room air. Patient states that she has no fever/chills, cough, no shortness of breath is worse than her normal as she has a history of COPD. Patient also notes she has a history of thyroid issues. She believes that she could have a UTI. - Related Data Allergies Allergy/AdvReac Type Severity Reaction Status Date / Time fluoxetine Allergy Severe Rash Verified 09/08/19 16:31 trazodone Allergy Severe Anxiety Verified 09/08/19 16:31 Home Meds: Home Meds Allopurinol [Zyloprim] 100 mg PO DAILY 12/25/14 [History] Benazepril [Lotensin] 5 mg PO DAILY 12/25/14 [History] Cholecalciferol (Vitamin D3) [Vitamin D3] 5,000 units PO DAILY 12/25/14 [History] Esomeprazole [NexIUM] 40 mg PO DAILY 12/25/14 [History] Fluticasone/Salmeterol [Advair 250-50] 1 puff INH BID 12/25/14 [History] Furosemide [Lasix] 60 mg PO DAILY 12/25/14 [History] Glimepiride [Amaryl] 2 mg PO DAILY 12/25/14 [History] Potassium Chloride [Klor-Con M20] 40 meq PO DAILY 12/25/14 [History] carvediloL [Coreg] 3.125 mg PO BID 12/25/14 [History] Ascorbic Acid [Vitamin C] 500 mg PO DAILY 07/12/15 [History] Cyanocobalamin (Vitamin B-12) [Vitamin B-12] 1,000 mcg PO DAILY 07/12/15 [History] Eszopiclone [Lunesta] 3 mg PO BEDTIME 04/03/17 [History] Rivaroxaban [Xarelto] 20 mg PO BEDTIME 04/03/17 [History] Albuterol Sulfate [Albuterol Sulfate Hfa] 2 puff IH Q4HR PRN 05/02/18 [History] Calcium Carbonate [Calcium] 600 mg PO DAILY 05/02/18 [History] atorvaSTATin [Lipitor] 10 mg PO BEDTIME 05/02/18 [History] LORazepam [Ativan] 1 mg PO BEDTIME PRN #10 tab 09/08/19 [Rx] Levothyroxine [Synthroid] 50 mcg PO ACBREAKFAST 09/08/19 [History] cephALEXin [Cephalexin] 500 mg PO BID 5 Days #10 capsule 09/08/19 [Rx] Past Medical History HEENT History: Reports: Impaired Vision Other HEENT History: wears glasses Cardiovascular History: Reports: Afib, High Cholesterol, Hypertension Other Cardiovascular History: edema Respiratory History: Reports: COPD, Sleep Apnea Other Respiratory History: hypoxia Gastrointestinal History: Reports: Gastritis, GERD, Hiatal Hernia Other Gastrointestinal History: dysphagia, esophagitis Genitourinary History: Reports: Urinary Incontinence Musculoskeletal History: Reports: Gout, Osteoarthritis, Osteoporosis Psychiatric History: Reports: Other (See Below) Other Psychiatric History: insomnia Endocrine/Metabolic History: Reports: Diabetes, Type II, Hyperthyroidism, Hypothyroidism, Obesity/BMI 30+ Hematologic History: Reports: Anemia, Other (See Below) Other Hematologic History: [id number] deficiency - Past Surgical History HEENT Surgical History: Reports: Oral Surgery GI Surgical History: Reports: Appendectomy, Cholecystectomy Neurological Surgical History: Reports: None Musculoskeletal Surgical History: Reports: Hip Replacement, Knee Replacement Social & Family History - Family History Family Medical History: Noncontributory - Caffeine Use Caffeine Use: Reports: Soda - Living Situation & Occupation Living situation: Reports: , Alone Occupation: Retired ED ROS GENERAL - Review of Systems Review Of Systems: See Below Constitutional: Denies: Fever, Chills Respiratory: Denies: Shortness of Breath, Cough Cardiovascular: Denies: Chest Pain GI/Abdominal: Denies: Abdominal Pain, Constipation, Diarrhea, Nausea, Vomiting : Reports: Incontinence (no more than normal for her). Denies: Dysuria, Frequ ency, Urgency Neurological: Reports: Other (genealized shakiness, issues with insomnia) ED EXAM, GENERAL - Physical Exam Exam: See Below Exam Limited By: No Limitations General Appearance: Alert, WD/WN, No Apparent Distress Head: Atraumatic, Normocephalic Neck: Normal Inspection Respiratory/Chest: No Respiratory Distress, Lungs Clear, Normal Breath Sounds, No Accessory Muscle Use, Chest Non-Tender Cardiovascular: Normal Peripheral Pulses, Regular Rate, Rhythm, No Edema, No Murmur GI/Abdominal: Normal Bowel Sounds, Soft, Non-Tender, No Distention, No Mass Extremities: Normal Inspection, Normal Capillary Refill Neurological: Alert, Oriented, Normal Cognition, No Motor/Sensory Deficits Psychiatric: Normal Affect, Normal Mood Skin Exam: Warm, Dry, Intact, Normal Color, No Rash Course - Vital Signs Last Recorded V/S: Last Vital Signs Temp 98.5 F 09/08/19 16:13 Pulse 102 H 09/08/19 16:13 Resp 20 09/08/19 16:13 BP 172/80 H 09/08/19 16:13 Pulse Ox 90 L 09/08/19 16:13 - Orders/Labs/Meds Orders: Active Orders 24 hr Category Date Time Status CULTURE URINE [RM] Routine Lab 09/08/19 17:55 Ordered Labs: Laboratory Tests 09/08/19 09/08/19 09/08/19 Range/Units 16:55 17:05 17:05 WBC 8.48 (3.98-10.04) K/mm3 RBC 3.96 L (3.98-5.22) M/mm3 Hgb 10.9 L (11.2-15.7) gm/dl Hct 35.5 (34.1-44.9) % MCV 89.6 (79.4-94.8) fl MCH 27.5 (25.6-32.2) pg MCHC 30.7 L (32.2-35.5) g/dl RDW Std Deviation 43.2 (36.4-46.3) fL Plt Count 146 L (182-369) K/mm3 MPV 13.1 H (9.4-12.3) fl Neut % (Auto) 79.4 H (34.0-71.1) % Lymph % (Auto) 10.1 L (19.3-51.7) % Campbell % (Auto) 7.3 (4.7-12.5) % Eos % (Auto) 2.6 (0.7-5.8) Baso % (Auto) 0.1 (0.1-1.2) % Neut # (Auto) 6.73 H (1.56-6.13) K/mm3 Lymph # (Auto) 0.86 L (1.18-3.74) K/mm3 Campbell # (Auto) 0.62 H (0.24-0.36) K/mm3 Eos # (Auto) 0.22 (0.04-0.36) K/mm3 Baso # (Auto) 0.01 (0.01-0.08) K/mm3 Sodium 139 (136-145) mEq/L Potassium 4.0 (3.5-5.1) mEq/L Chloride 102 (98-107) mEq/L Carbon Dioxide 29 (21-32) mEq/L Anion Gap 12.0 (5-15) BUN 17 (7-18) mg/dL Creatinine 0.9 (0.55-1.02) mg/dL Est Cr Clr Drug Dosing 38.79 mL/min Estimated GFR (MDRD) > 60 (>60) mL/min BUN/Creatinine Ratio 18.9 H (14-18) Glucose 141 H (83-115) mg/dL Calcium 9.2 (8.5-10.1) mg/dL Total Bilirubin 0.3 (0.2-1.0) mg/dL AST 19 (15-37) U/L ALT 21 (14-59) U/L Alkaline Phosphatase 109 (46-116) U/L Total Protein 7.0 (6.4-8.2) g/dl Albumin 3.2 L (3.4-5.0) g/dl Globulin 3.8 gm/dL Albumin/Globulin Ratio 0.8 L (1-2) TSH 3rd Generation 2.069 (0.358-3.74) uIU/mL Urine Color Yellow (Yellow) Urine Appearance Clear (Clear) Urine pH 7.0 (5.0-8.0) Ur Specific [place] 1.020 (1.005-1.030) Urine Protein 1+ H (Negative) Urine Glucose (UA) Negative (Negative) Urine Ketones Negative (Negative) Urine Occult Blood Trace-intact H (Negative) Urine Nitrite Negative (Negative) Urine Bilirubin Negative (Negative) Urine Urobilinogen 0.2 (0.2-1.0) Ur Leukocyte Esterase Trace H (Negative) Urine RBC Not seen (0-5) /hpf Urine WBC 5-10 H (0-5) /hpf Ur Squamous Epith Cells 0-5 (0-5) /hpf Urine Bacteria Few (FEW) /hpf Urine Mucus Not seen (FEW) /hpf - Re-Assessments/Exams Free Text/Narrative Re-Assessment/Exam: 09/08/19 16:43 Patient presents to the ED for evaluation of her insomnia. I will likely have her stop the Lunesta and trial 1 mg Ativan for the next week or so, and have her follow-up with Dr. Maxwell to see if this provides insomnia relief. Basic labs were checked to rule out infection, and/or a UTI. 09/08/19 17:56 Patient CBC and urinalysis has been completed, CBC demonstrates no elevated white count. Urinalysis which was a quick cath, demonstrates trace leukocyte Estrace and 5-10 white blood cells, she will be started on Keflex for UTI, metabolic panel and TSH are still pending at this time. 09/08/19 17:59 Metabolic panel has come back along with a TSH and everything is within normal limits. Patient be discharged home with general recommendations and a trial of the Ativan as noted above. Departure - Departure Time of Disposition: 18:00 Disposition: Home, Self-Care 01 Condition: Good Clinical Impression: UTI (urinary tract infection) Qualifiers: Urinary tract infection type: acute cystitis Hematuria presence: without hematuria Qualified Code(s): N30.00 - Acute cystitis without hematuria Insomnia Qualifiers: Insomnia type: unspecified Qualified Code(s): G47.00 - Insomnia, unspecified - Discharge Information *PRESCRIPTION DRUG MONITORING PROGRAM REVIEWED*: Yes *COPY OF PRESCRIPTION DRUG MONITORING REPORT IN PATIENT NAZANIN: No Prescriptions: LORazepam [Ativan] 1 mg PO BEDTIME PRN #10 tab PRN Reason: Insomnia cephALEXin [Cephalexin] 500 mg PO BID 5 Days #10 capsule Instructions: Urinary Tract Infection, Adult, [id number] Referrals: Argelia Maxwell MD [Primary Care Provider] - Forms: ED Department Discharge Additional Instructions: You have been evaluated in the ED for your insomnia/urinary symptoms. Your urinalysis was consistent with an acute urinary tract infection. Your urine was sent for culture, and you will be notified if you should need a change in your antibiotic. This may take up to 48 hours to result. You have been given a prescription for Cephalexin, 500 mg 1 tablet 2 times a day for 5 days. This has been electronically sent to the [place] [facility] located in the [employer] [facility]. Please increase your oral fluid intake and try to stay adequately hydrated. Regarding your insomnia, please stop taking the Lunesta at home, you have been given a prescription for Ativan, to try to help allow you to sleep at night. Please take 1 tablet 30 minutes prior to bedtime, to try to get you to sleep, you may also try some [id number] melatonin, this will help make you fall asleep, the Ativan should make you hopefully stay asleep. You been given enough for roughly 1 week, you will need to follow-up with your regular provider for further changes in your medications as warranted. All of your other lab values were within normal limits, your TSH was within nor mal limits. Again I recommend you follow-up with your primary care provider, sometime next week for reevaluation and to make sure everything is getting better as expected. Please return to the ED if your symptoms change or worsen. Sepsis Event Note (ED) - Evaluation Sepsis Screening Result: No Definite Risk - Focused Exam Vital Signs: Vital Signs Temp Pulse Resp BP Pulse Ox 09/08/19 16:13 98.5 F 102 H 20 172/80 H 90 L - My Orders Last 24 Hours: My Active Orders 09/08/19 17:55 CULTURE URINE [RM] Routine - Assessment/Plan Last 24 Hours: My Active Orders 09/08/19 17:55 CULTURE URINE [RM] Routine
[2019-09-08 18:33] VITALS: BP 126/88; PULSE 94
== END 2019-09-08 18:34 | disposition home or self-care (01) ==
LOC: JD.ED 16:02
DX: G47.00 Insomnia, unspecified (principal); N30.00 Acute cystitis without hematuria; I10 Essential (primary) hypertension; E78.00 Pure hypercholesterolemia, unspecified; I48.91 Unspecified atrial fibrillation; J44.9 Chronic obstructive pulmonary disease, unspecified; K21.9 Gastro-esophageal reflux disease without esophagitis; M10.9 Gout, unspecified; E11.9 Type 2 diabetes mellitus without complications; E03.9 Hypothyroidism, unspecified; E66.9 Obesity, unspecified; Z68.42 Body mass index [BMI] 45.0-49.9, adult; Z88.8 Allergy status to other drugs, medicaments and biological substances; Z88.5 Allergy status to narcotic agent; Z79.01 Long term (current) use of anticoagulants; Z79.899 Other long term (current) drug therapy
CPT/HCPCS: 36415; 80053; 81001; 84443; 85025; 87086; 87088; 87186; 99283

== ENCOUNTER 2019-09-26 11:11 | Emergency (ER) | payer MEDICARE, OTHER, MEDICAID ==
[2019-09-26 11:27] VITALS: BP 163/86; PULSE 88
--- NOTE | 2019-09-26 12:15 | EDM.PDOC ---
ED HPI GENERAL MEDICAL PROBLEM - General Chief Complaint: General Stated Complaint: TROUBLE SLEEPING Time Seen by Provider: 09/26/19 11:23 Source of Information: Reports: Patient History Limitations: Reports: No Limitations - History of Present Illness INITIAL COMMENTS - FREE TEXT/NARRATIVE: Patient is a 73-year-old female who presents to the emergency department with ongoing complaints of insomnia. This is been a longstanding, chronic problem for her. She has been seen in this emergency department with this complaint on one other occasion, and has also been seeing her primary care provider, Dr. Maxwell. She has been on Lunesta, Belsomra, trazodone, and Ativan in the past. She was recently started on mirtazapine on 15 September, however she states that this is not working for her. On average, she sleeps 1 to 2 hours per night. States the night before last she was able to sleep for 5 hours. She feels that she slept better on the Lunesta than she is now, however she did not sleep full nights on this medication either. Her last visit with her primary care provider was on September 15. She has not called and scheduled a follow-up appointment with her PCP since that time. She states that when she does not sleep, she becomes shaky. She denies any other complaints at this time such as weakness, shortness of breath, cough, fever, chills, nausea, vomiting, or diarrhea. - Related Data Allergies Allergy/AdvReac Type Severity Reaction Status Date / Time fluoxetine Allergy Severe Rash Verified 09/08/19 16:31 trazodone Allergy Severe Anxiety Verified 09/08/19 16:31 Home Meds: Home Meds Allopurinol [Zyloprim] 100 mg PO DAILY 12/25/14 [History] Benazepril [Lotensin] 5 mg PO DAILY 12/25/14 [History] Cholecalciferol (Vitamin D3) [Vitamin D3] 5,000 units PO DAILY 12/25/14 [History] Esomeprazole [NexIUM] 40 mg PO DAILY 12/25/14 [History] Fluticasone/Salmeterol [Advair 250-50] 1 puff INH BID 12/25/14 [History] Furosemide [Lasix] 60 mg PO DAILY 12/25/14 [History] Glimepiride [Amaryl] 2 mg PO DAILY 12/25/14 [History] Potassium Chloride [Klor-Con M20] 40 meq PO DAILY 12/25/14 [History] carvediloL [Coreg] 3.125 mg PO BID 12/25/14 [History] Ascorbic Acid [Vitamin C] 500 mg PO DAILY 07/12/15 [History] Cyanocobalamin (Vitamin B-12) [Vitamin B-12] 1,000 mcg PO DAILY 07/12/15 [History] Eszopiclone [Lunesta] 3 mg PO BEDTIME 04/03/17 [History] Rivaroxaban [Xarelto] 20 mg PO BEDTIME 04/03/17 [History] Albuterol Sulfate [Albuterol Sulfate Hfa] 2 puff IH Q4HR PRN 05/02/18 [History] Calcium Carbonate [Calcium] 600 mg PO DAILY 05/02/18 [History] atorvaSTATin [Lipitor] 10 mg PO BEDTIME 05/02/18 [History] LORazepam [Ativan] 1 mg PO BEDTIME PRN #10 tab 09/08/19 [Rx] Levothyroxine [Synthroid] 50 mcg PO ACBREAKFAST 09/08/19 [History] Mirtazapine 7.5 mg PO BEDTIME 09/26/19 [History] Past Medical History HEENT History: Reports: Impaired Vision Other HEENT History: wears glasses Cardiovascular History: Reports: Afib, High Cholesterol, Hypertension Other Cardiovascular History: edema Respiratory History: Reports: COPD, Sleep Apnea Other Respiratory History: hypoxia Gastrointestinal History: Reports: Gastritis, GERD, Hiatal Hernia Other Gastrointestinal History: dysphagia, esophagitis Genitourinary History: Reports: Urinary Incontinence Musculoskeletal History: Reports: Gout, Osteoarthritis, Osteoporosis Neurological History: Reports: None Psychiatric History: Reports: Other (See Below) Other Psychiatric History: insomnia Endocrine/Metabolic History: Reports: Diabetes, Type II, Hyperthyroidism, Hypothyroidism, Obesity/BMI 30+ Hematologic History: Reports: Anemia, Other (See Below) Other Hematologic History: [id number] deficiency Immunologic History: Reports: None Oncologic (Cancer) History: Reports: None Dermatologic History: Reports: None - Past Surgical History HEENT Surgical History: Reports: Oral Surgery GI Surgical History: Reports: Appendectomy, Cholecystectomy Neurological Surgical History: Reports: None Musculoskeletal Surgical History: Reports: Hip Replacement, Knee Replacement Social & Family History - Family History Family Medical History: Noncontributory - Caffeine Use Caffeine Use: Reports: Soda - Living Situation & Occupation Living situation: Reports: , Alone Occupation: Retired ED ROS GENERAL - Review of Systems Review Of Systems: See Below Constitutional: Reports: No Symptoms. Denies: Fever, Chills, Weakness HEENT: Reports: No Symptoms Respiratory: Reports: No Symptoms. Denies: Shortness of Breath, Cough Cardiovascular: Reports: No Symptoms Endocrine: Reports: No Symptoms GI/Abdominal: Reports: No Symptoms : Reports: No Symptoms Musculoskeletal: Reports: No Symptoms Skin: Reports: No Symptoms Neurological: Reports: Other (sleep disturbance). Denies: Dizziness, Headache Psychiatric: Reports: Anxiety Hematologic/Lymphatic: Reports: No Symptoms Immunologic: Reports: No Symptoms ED EXAM, GENERAL - Physical Exam Exam: See Below Exam Limited By: No Limitations General Appearance: Alert, WD/WN, No Apparent Distress Respiratory/Chest: No Respiratory Distress, Lungs Clear, Normal Breath Sounds, No Accessory Muscle Use, Chest Non-Tender Cardiovascular: Normal Peripheral Pulses, Regular Rate, Rhythm, No Edema, No Gallop, No JVD, No Murmur, No Rub Neurological: Alert, Oriented, CN II-XII Intact, Normal Cognition, Normal Gait, Normal Reflexes, No Motor/Sensory Deficits Psychiatric: Normal Affect, Normal Mood Skin Exam: Warm, Dry, Intact, Normal Color, No Rash Course - Vital Signs Last Recorded V/S: Last Vital Signs Temp 98.7 F 09/26/19 11:24 Pulse 88 09/26/19 11:24 Resp 16 09/26/19 11:24 BP 163/86 H 09/26/19 11:24 Pulse Ox 97 09/26/19 11:24 - Re-Assessments/Exams Free Text/Narrative Re-Assessment/Exam: Patient is a 73-year-old female who presents to the emergency department with complaints of chronic insomnia. On review of her records, she has been on numerous different medications, therefore I am hesitant to change her medications through the emergency department. She has been on trazodone in the past and states that she did not react well to this. It caused confusion and weakness. I was able to call and speak with her primary care provider, Dr. Maxwell. Since the patient states that she did better on Lunesta than off of it, we are going to recommend that she restart this medication in addition to the Remeron. Dr. Maxwell recommended that she call to get a follow-up appointment with her and that she will work on getting her referred to a sleep specialist. Discussed this plan with the patient and she is in agreement with this. She does still have a one-month supply of Lunesta at home. Discharge instructions as documented. Departure - Departure Time of Disposition: 12:09 Disposition: Home, Self-Care 01 Condition: Good Clinical Impression: Insomnia Qualifiers: Insomnia type: unspecified Qualified Code(s): G47.00 - Insomnia, unspecified - Discharge Information *PRESCRIPTION DRUG MONITORING PROGRAM REVIEWED*: No *COPY OF PRESCRIPTION DRUG MONITORING REPORT IN PATIENT NAZANIN: No Instructions: Insomnia Referrals: Argelia Maxwell MD [Primary Care Provider] - Forms: ED Department Discharge Additional Instructions: You were seen in the emergency department for your insomnia. I was able to speak with your primary care provider, Dr. Maxwell. Since you stated that you slept better when you were on the Lunesta, we recommend that you start taking this medication again. You may take it in addition to you the mirtazapine that you were started on September 15. Call to schedule follow-up appoint with Dr. Maxwell at her next available visit. She will assist you with obtaining referral to sleep specialist. Return to the ER as needed. Sepsis Event Note (ED) - Evaluation Sepsis Screening Result: No Definite Risk - Focused Exam Vital Signs: Vital Signs Temp Pulse Resp BP Pulse Ox 09/26/19 11:24 98.7 F 88 16 163/86 H 97
== END 2019-09-26 12:32 | disposition home or self-care (01) ==
LOC: JD.ED 11:11
DX: G47.00 Insomnia, unspecified (principal); I10 Essential (primary) hypertension; E78.00 Pure hypercholesterolemia, unspecified; I48.91 Unspecified atrial fibrillation; J44.9 Chronic obstructive pulmonary disease, unspecified; K21.9 Gastro-esophageal reflux disease without esophagitis; M10.9 Gout, unspecified; E11.9 Type 2 diabetes mellitus without complications; E03.9 Hypothyroidism, unspecified; Z88.8 Allergy status to other drugs, medicaments and biological substances; Z79.899 Other long term (current) drug therapy; Z79.01 Long term (current) use of anticoagulants; Z79.84 Long term (current) use of oral hypoglycemic drugs
CPT/HCPCS: 99282; 99283

== ENCOUNTER 2020-05-04 16:56 | Emergency (ER) | payer MEDICARE, OTHER, MEDICAID ==
[2020-05-04 17:19] VITALS: BP 191/64; PULSE 84
[2020-05-04] MEDS ORDERED: Sodium Chloride 0.9% 10 ML Syringe FLUSH PRN (17:45)
--- NOTE | 2020-05-04 17:51 | EDM.PDOC ---
ED HPI GENERAL MEDICAL PROBLEM - General Chief Complaint: General Stated Complaint: SHAKEY AND WEAK Time Seen by Provider: 05/04/20 17:18 Source of Information: Reports: Patient History Limitations: Reports: No Limitations - History of Present Illness INITIAL COMMENTS - FREE TEXT/NARRATIVE: 74-year-old female presents the emergency department today with complaints of weakness and chills that started about 3 days ago. Patient states that she has been feeling more weak when she is up ambulating and her legs feel shaky. She denies any recent fever, nausea, vomiting or diarrhea however she states she has had the chills intermittently over the course the last few days. She states that when she is ambulating around her home she feels like she is doing okay however when she is out in the community she feels unsafe due to her shakiness and weakness. She states she has a history of COPD and normally when she is sitting at home she does not need oxygen however when ambulating she requires 2 L. Denies any recent cough or shortness of breath or chest pain. States she does have a history of anemia and did follow-up with surgery regarding a colonoscopy however Dr. Glaser did not feel that a colonoscopy was warranted at her age. States she started taking iron pills about 3 weeks ago. - Related Data Allergies Allergy/AdvReac Type Severity Reaction Status Date / Time fluoxetine Allergy Severe Rash Verified 05/04/20 17:19 trazodone Allergy Severe Anxiety Verified 05/04/20 17:19 Home Meds: Home Meds Allopurinol [Zyloprim] 100 mg PO DAILY 12/25/14 [History] Benazepril [Lotensin] 5 mg PO DAILY 12/25/14 [History] Cholecalciferol (Vitamin D3) [Vitamin D3] 5,000 units PO DAILY 12/25/14 [H istory] Esomeprazole [NexIUM] 40 mg PO DAILY 12/25/14 [History] Fluticasone/Salmeterol [Advair 250-50] 1 puff INH BID 12/25/14 [History] Furosemide [Lasix] 60 mg PO DAILY 12/25/14 [History] Glimepiride [Amaryl] 2 mg PO DAILY 12/25/14 [History] Potassium Chloride [Klor-Con M20] 40 meq PO DAILY 12/25/14 [History] carvediloL [Coreg] 3.125 mg PO BID 12/25/14 [History] Ascorbic Acid [Vitamin C] 500 mg PO DAILY 07/12/15 [History] Cyanocobalamin (Vitamin B-12) [Vitamin B-12] 1,000 mcg PO DAILY 07/12/15 [History] Eszopiclone [Lunesta] 3 mg PO BEDTIME 04/03/17 [History] Rivaroxaban [Xarelto] 20 mg PO BEDTIME 04/03/17 [History] Albuterol Sulfate [Albuterol Sulfate Hfa] 2 puff IH Q4HR PRN 05/02/18 [History] Calcium Carbonate [Calcium] 600 mg PO DAILY 05/02/18 [History] atorvaSTATin [Lipitor] 10 mg PO BEDTIME 05/02/18 [History] LORazepam [Ativan] 1 mg PO BEDTIME PRN #10 tab 09/08/19 [Rx] Levothyroxine [Synthroid] 50 mcg PO ACBREAKFAST 09/08/19 [History] Mirtazapine 7.5 mg PO BEDTIME 09/26/19 [History] Cefdinir [Omnicef] 300 mg PO BID #10 cap 05/04/20 [Rx] Past Medical History HEENT History: Reports: Impaired Vision Other HEENT History: wears glasses Cardiovascular History: Reports: Afib, High Cholesterol, Hypertension Other Cardiovascular History: edema Respiratory History: Reports: COPD, Sleep Apnea Other Respiratory History: hypoxia Gastrointestinal History: Reports: Gastritis, GERD, Hiatal Hernia Other Gastrointestinal History: dysphagia, esophagitis Genitourinary History: Reports: Urinary Incontinence Musculoskeletal History: Reports: Gout, Osteoarthritis, Osteoporosis Neurological History: Reports: None Psychiatric History: Reports: Other (See Below) Other Psychiatric History: insomnia Endocrine/Metabolic History: Reports: Diabetes, Type II, Hyperthyroidism, Hypothyroidism, Obesity/BMI 30+ Hematologic History: Reports: Anemia, Other (See Below) Other Hematologic History: [id number] deficiency Immunologic History: Reports: None Oncologic (Cancer) History: Reports: None Dermatologic History: Reports: None - Past Surgical History HEENT Surgical History: Reports: Oral Surgery Cardiovascular Surgical History: Reports: Coronary Artery Stent Respiratory Surgical History: Reports: None GI Surgical History: Reports: Appendectomy, Cholecystectomy Female Surgical History: Reports: None Endocrine Surgical History: Reports: None Neurological Surgical History: Reports: None Musculoskeletal Surgical History: Reports: Hip Replacement, Knee Replacement Oncologic Surgical History: Reports: None Dermatological Surgical History: Reports: None Social & Family History - Family History Family Medical History: No Pertinent Family History - Tobacco Use Tobacco Use Status *Q: Never Tobacco User - Caffeine Use Caffeine Use: Reports: Soda - Recreational Drug Use Recreational Drug Use: No - Living Situation & Occupation Living situation: Reports: , Alone Occupation: Retired ED ROS GENERAL - Review of Systems Review Of Systems: See Below Constitutional: Reports: No Symptoms. Denies: Fever, Chills HEENT: Reports: Glasses Respiratory: Reports: Shortness of Breath (w exertion from chronic COPD). Denies: Cough, Sputum Cardiovascular: Reports: No Symptoms. Denies: Chest Pain Endocrine: Reports: No Symptoms GI/Abdominal: Reports: No Symptoms : Reports: No Symptoms. Denies: Dysuria Musculoskeletal: Reports: No Symptoms, Other (generalized weakness) Skin: Reports: No Symptoms Neurological: Reports: No Symptoms Psychiatric: Reports: No Symptoms Hematologic/Lymphatic: Reports: No Symptoms Immunologic: Reports: No Symptoms ED EXAM, GENERAL - Physical Exam Exam: See Below #1 Interpretation EKG Date: 05/04/20 Time: 18:07 Rhythm: NSR Rate (Beats/Min): 64 [place]: Normal P-Wave: Present QRS: Normal ST-T: Normal QT: Normal EKG Interpretation Comments: Per Dr. Espino interpretation: NSR @ 64, T wave inversion- lead III, No ST elevation or depression. Course - Vital Signs Text/Narrative:: A 74-year-old female with complaints of new onset weakness and shakiness that started about 3 days ago. She states that over the course the last few days she has become more weak and her legs have been more shaky. She states she does not feel like she has difficulties getting around her home however when she is out in the community she feels unsafe. She reports she has a history of anemia for which she just started taking iron supplementation 3 weeks ago at the recommendation of her primary care physician. She states she was seen by surgery and he did not feel a colonoscopy was warranted at her age. She denies any neftali red blood in her stool. She denies any shortness of breath or cough, fever nausea vomiting or diarrhea. She does report she has had the chills intermittently over the last few days. She also has a history of Graves' disease for which she states she takes 50 mcg of levothyroxine daily however she has not had her levels checked in quite some time. She was supposed to have lab work completed today per her primary care physician however she stated that she felt too weak to make it to her appointment. I have ordered labs, EKG, and a chest x-ray. Last Recorded V/S: Last Vital Signs Temp 97.8 F 05/04/20 17:16 Pulse 84 05/04/20 17:16 Resp 22 H 05/04/20 17:16 BP 191/64 H 05/04/20 17:16 Pulse Ox 98 05/04/20 17:16 - Orders/Labs/Meds Orders: Active Orders 24 hr Category Date Time Status EKG Documentation Completion [RC] STAT Care 05/04/20 17:45 Active Hemoccult [Fecal Occult Blood Collection] [RC] Care 05/04/20 20:43 Active ASDIRECTED Chest 1V Frontal [CR] Stat Exams 05/04/20 17:45 Taken CULTURE URINE [RM] Stat Lab 05/04/20 19:30 Received Sodium Chloride 0.9% [Saline Flush] Med 05/04/20 17:45 Active 10 ml FLUSH ASDIRECTED PRN Saline Lock Insert [OM.PC] Stat Oth 05/04/20 17:45 Ordered Medication Orders Sodium Chloride (Saline Flush) 10 ml FLUSH ASDIRECTED PRN PRN Reason: Keep Vein Open Last Admin: 05/04/20 18:18 Dose: 10 ml Documented by: KEYSHA Labs: Laboratory Tests 05/04/20 05/04/20 05/04/20 Range/Units 18:34 18:34 19:30 WBC 8.92 (3.98-10.04) K/mm3 RBC 4.03 (3.98-5.22) M/mm3 Hgb 10.4 L (11.2-15.7) gm/dl Hct 36.2 (34.1-44.9) % MCV 89.8 (79.4-94.8) fl MCH 25.8 (25.6-32.2) pg MCHC 28.7 L (32.2-35.5) g/dl RDW Std Deviation 48.1 H (36.4-46.3) fL Plt Count 157 L (182-369) K/mm3 MPV 12.5 H (9.4-12.3) fl Neut % (Auto) 74.6 H (34.0-71.1) % Lymph % (Auto) 12.8 L (19.3-51.7) % [place] % (Auto) 7.6 (4.7-12.5) % Eos % (Auto) 4.8 (0.7-5.8) Baso % (Auto) 0.1 (0.1-1.2) % Neut # (Auto) 6.65 H (1.56-6.13) K/mm3 Lymph # (Auto) 1.14 L (1.18-3.74) K/mm3 [place] # (Auto) 0.68 H (0.24-0.36) K/mm3 Eos # (Auto) 0.43 H (0.04-0.36) K/mm3 Baso # (Auto) 0.01 (0.01-0.08) K/mm3 Manual Slide Review Abnormal smear Sodium 145 (136-145) mEq/L Potassium 4.2 (3.5-5.1) mEq/L Chloride 103 (98-107) mEq/L Carbon Dioxide 37 H (21-32) mEq/L Anion Gap 9.2 (5-15) BUN 23 H (7-18) mg/dL Creatinine 0.8 (0.55-1.02) mg/dL Est Cr Clr Drug Dosing 42.97 mL/min Estimated GFR (MDRD) > 60 (>60) mL/min BUN/Creatinine Ratio 28.8 H (14-18) Glucose 110 (83-115) mg/dL Calcium 9.6 (8.5-10.1) mg/dL Magnesium 2.1 (1.8-2.4) mg/dl Total Bilirubin 0.4 (0.2-1.0) mg/dL AST 19 (15-37) U/L ALT 17 (14-59) U/L Alkaline Phosphatase 108 (46-116) U/L Troponin I < 0.017 (0.00-0.056) ng/mL C-Reactive Protein 2.3 H* (<1.0) mg/dL Total Protein 7.1 (6.4-8.2) g/dl Albumin 3.0 L (3.4-5.0) g/dl Globulin 4.1 gm/dL Albumin/Globulin Ratio 0.7 L (1-2) TSH 3rd Generation 3.225 (0.358-3.74) uIU/mL Urine Color Yellow (Yellow) Urine Appearance Slt cloudy H (Clear) Urine pH 6.5 (5.0-8.0) Ur Specific [place] 1.015 (1.005-1.030) Urine Protein Negative (Negative) Urine Glucose (UA) Negative (Negative) Urine Ketones Negative (Negative) Urine Occult Blood Trace-intact H (Negative) Urine Nitrite Negative (Negative) Urine Bilirubin Negative (Negative) Urine Urobilinogen 0.2 (0.2-1.0) Ur Leukocyte Esterase 2+ H (Negative) Urine RBC 0-5 (0-5) /hpf Urine WBC 5-10 H (0-5) /hpf Ur Squamous Epith Cells 5-10 H (0-5) /hpf Urine Bacteria Moderate H (FEW) /hpf Urine Mucus Few (FEW) /hpf Meds: Medications Generic Name Dose Route Start Last Admin Trade Name Jaycee PRN Reason Stop Dose Admin Sodium Chloride 10 ml 05/04/20 17:45 05/04/20 18:18 Saline Flush FLUSH 10 ml ASDIRECTED PRN Administration Keep Vein Open Discontinued Medications Generic Name Dose Route Start Last Admin Trade Name Jaycee PRN Reason Stop Dose Admin Ceftriaxone Sodium 1 gm 05/04/20 20:52 Rocephin IM 05/04/20 20:53 ONETIME ONE - Re-Assessments/Exams Free Text/Narrative Re-Assessment/Exam: 05/04/20 20:19 Abs reveal a WBC 8.92, hemoglobin 10.4, hematocrit 36.2 platelet count 157, sodium 145, potassium 4.2, carbon dioxide 37, BUN 23, creatinine 0.8, magnesium 2.1, troponin less than 0.017, C-reactive protein 2.3, TSH 3.225, Urinalysis reveals urine appearance slightly cloudy, urine occult blood trace of intact, urine leuk esterase 2+, urine WBC 5-10 urine squamous cells 5-10, urine bacteria moderate 05/04/20 20:41 Performed a rectal exam on the patient, and the patient is negative for occult blood. Patient will be discharged home with a prescription for Omnicef twice daily x5 days. Urine culture will be pending. His hemoglobin levels are slightly low at 10.4 however she states she started taking iron supplementation about 2 weeks ago and this likely will take about 3 months to have full effect. Patient informed to return to the emergency department should she develop fever, chills, nausea or vomiting. Portable chest x-ray the read interpretation: Concern for acute airspace disease in the right lung base in which infectious pneumonia should be entertained in the appropriate clinical setting. Patient denies any recent fever, chills, cough or shortness of breath. She states that her oxygen needs have not increased at home so I will not treat her for this at this time. Departure - Departure Time of Disposition: 20:44 Disposition: Home, Self-Care 01 Condition: Fair Clinical Impression: UTI, Urinary tract infectious disease - Discharge Information Prescriptions: Cefdinir [Omnicef] 300 mg PO BID #10 cap Instructions: Urinary Tract Infection, Adult, [id number] Referrals: Argelia Maxwell MD [Primary Care Provider] - Forms: ED Department Discharge Additional Instructions: You were seen in the Ed with complaints of "leg shakiness" and feeling weak. Chest xray, EKG, and lab work was completed. Your hemoglobin level was 10.4 today. This is low, however, you did not show signs of acute gastrointestinal bleed. You also did that Dr. Maxwell recently started you on iron supplementation for chronic anemia. Recommend that you continue taking this as it takes up to 3 months to see full effect. Your urinalysis revealed that you did have a bladder infection. You were given a shot of antibiotic called Rocephin while in the emergency department and a prescription has been sent to your pharmacy for oral antibiotics. You will take Omnicef 1 tab twice daily for 5 days. Should you develop fever, chills, nausea, or vomiting you need to return to the emergency department. Follow-up with Dr. Maxwell the middle to the end of the next week for recheck. Sepsis Event Note (ED) - Evaluation Sepsis Screening Result: No Definite Risk - Focused Exam Vital Signs: Vital Signs Temp Pulse Resp BP Pulse Ox 05/04/20 17:16 97.8 F 84 22 H 191/64 H 98 - My Orders Last 24 Hours: My Active Orders 05/04/20 17:45 EKG Documentation Completion [RC] STAT Chest 1V Frontal [CR] Stat Sodium Chloride 0.9% [Saline Flush] 10 ml FLUSH ASDIRECTED PRN Saline Lock Insert [OM.PC] Stat 05/04/20 19:30 CULTURE URINE [RM] Stat 05/04/20 20:43 Hemoccult [Fecal Occult Blood Collection] [RC] ASDIRECTED - Assessment/Plan Last 24 Hours: My Active Orders 05/04/20 17:45 EKG Documentation Completion [RC] STAT Chest 1V Frontal [CR] Stat Sodium Chloride 0.9% [Saline Flush] 10 ml FLUSH ASDIRECTED PRN Saline Lock Insert [OM.PC] Stat 05/04/20 19:30 CULTURE URINE [RM] Stat 05/04/20 20:43 Hemoccult [Fecal Occult Blood Collection] [RC] ASDIRECTED
[2020-05-04] MEDS ORDERED: cefTRIAXone 1 GM Vial IM ONE (20:52)
[2020-05-04] MEDS ORDERED: cefTRIAXone 1 GM, Lidocaine 1% 2.1 ML IM ONE ×2 (21:03)
--- NOTE | 2020-05-06 09:00 | CR ---
Chest: Portable view of the chest was obtained. Comparison: Prior chest x-ray of 02/18/19. Heart is enlarged. Pulmonary vessels are slightly increased which appear to be chronic. No acute parenchymal change is seen. No acute bony abnormality is appreciated. Impression: 1. Cardiomegaly and mild stable vascular prominence. 2. Nothing acute is appreciated on portable chest x-ray. Diagnostic code #2
== END 2020-05-04 21:40 | disposition home or self-care (01) ==
LOC: JD.ED 16:56
DX: N39.0 Urinary tract infection, site not specified (principal); I48.91 Unspecified atrial fibrillation; E78.00 Pure hypercholesterolemia, unspecified; I10 Essential (primary) hypertension; J44.9 Chronic obstructive pulmonary disease, unspecified; K21.9 Gastro-esophageal reflux disease without esophagitis; M10.9 Gout, unspecified; E11.9 Type 2 diabetes mellitus without complications; E03.9 Hypothyroidism, unspecified; Z79.84 Long term (current) use of oral hypoglycemic drugs; Z88.8 Allergy status to other drugs, medicaments and biological substances; Z88.5 Allergy status to narcotic agent; Z79.899 Other long term (current) drug therapy; Z79.01 Long term (current) use of anticoagulants
CPT/HCPCS: 36415; 71045; 80053; 81001; 83735; 84443; 84484; 85025; 86140; 87086; 87088; 87186; 93005; 96372; 99285; J0696; 93010; 99284

== ENCOUNTER 2021-07-10 09:32 | Emergency (ER) | payer MEDICARE, MEDICAID ==
[2021-07-10 13:12] VITALS: BP 116/88; PULSE 80
== END 2021-07-10 13:12 | disposition home or self-care (01) ==
LOC: JD.ED 09:32
DX: J34.89 Other specified disorders of nose and nasal sinuses (principal); I48.91 Unspecified atrial fibrillation; E78.00 Pure hypercholesterolemia, unspecified; I10 Essential (primary) hypertension; J44.9 Chronic obstructive pulmonary disease, unspecified; K21.9 Gastro-esophageal reflux disease without esophagitis; M10.9 Gout, unspecified; M19.90 Unspecified osteoarthritis, unspecified site; E11.9 Type 2 diabetes mellitus without complications; E03.9 Hypothyroidism, unspecified; Z88.8 Allergy status to other drugs, medicaments and biological substances; Z88.5 Allergy status to narcotic agent; Z79.01 Long term (current) use of anticoagulants; Z79.899 Other long term (current) drug therapy
CPT/HCPCS: 81003; 99283

== ENCOUNTER 2022-07-09 21:43 | Inpatient (IN) | payer MEDICARE, OTHER, MEDICAID ==
[2022-07-09] MEDS ORDERED: Albuterol/Ipratropium 3.0-0.5 MG/3 ML Neb Soln NEB PRN (21:56)
[2022-07-09] MEDS ORDERED: methylPREDNISolone Sod Succ 125 MG in Sodium Chloride 0.9% 250 ML IV ONE (21:59)
[2022-07-09 22:25] LABS: BICARBONATE,VENOUS 39.7 meq/L (22-26); O2 SATURATION VENOUS 71.7; PCO2 VENOUS 72.5 mmHg (41-51); PH,VENOUS 7.36 (7.30-7.40)
[2022-07-09] MEDS ORDERED: methylPREDNISolone Sodium Succinate 125 MG/2 ML SDV IVPUSH ONE (22:28)
[2022-07-09 22:34] LABS: BASOPHILS ABSOLUTE AUTO 0.02 K/mm3 (0.01-0.08); BASOPHILS PERCENT AUTO 0.2 % (0.1-1.2); EOSINOPHILS ABSOLUTE AUTO 0.11 K/mm3 (0.04-0.36); EOSINOPHILS PERCENT AUTO 1.3 (0.7-5.8); HEMATOCRIT 38.9 % (34.1-44.9); HEMOGLOBIN 11.6 gm/dl (11.2-15.7); IMMATURE GRAN ABSOLUTE AUTO 0.04 K/mm3 (0.00-0.10); IMMATURE GRAN PERCENT AUTO 0.5 % (<=1.0); LYMPHOCYTES ABSOLUTE AUTO 0.61 K/mm3 (1.18-3.74); MEAN CORPUSCULAR HEMOGLOBIN 29.9 pg (25.6-32.2); MEAN CORPUSCULAR HGB CONC 29.8 g/dl (32.2-35.5); MEAN CORPUSCULAR VOLUME 100.3 fl (79.4-94.8); MEAN PLATELET VOLUME 12.8 fl (9.4-12.3); MONOCYTES ABSOLUTE AUTO 0.97 K/mm3 (0.24-0.36); MONOCYTES PERCENT AUTO 11.2 % (4.7-12.5); NEUTROPHILS ABSOLUTE AUTO 6.91 K/mm3 (1.56-6.13); NEUTROPHILS PERCENT AUTO 79.8 % (34.0-71.1); PLATELET COUNT,PLT 140 K/mm3 (182-369); RED BLOOD CELL COUNT 3.88 M/mm3 (3.98-5.22); WHITE BLOOD CELL COUNT,WBC 8.66 K/mm3 (3.98-10.04)
[2022-07-09 23:25] LABS: A/G RATIO 0.7 (1-2); ALBUMIN 3.2 g/dl (3.4-5.0); ANION GAP 7.2 (5-15); BILIRUBIN TOTAL 0.4 mg/dL (0.2-1.0); CALCIUM 9.9 mg/dL (8.5-10.1); EST CRCL DRUG DOSING (CG) 33.3 mL/min; POTASSIUM,K 4.2 mEq/L (3.5-5.1); PROTEIN TOTAL,TP 7.7 g/dl (6.4-8.2)
[2022-07-09 23:27] LABS: LACTIC ACID 0.8 mmol/L (0.4-2.0)
[2022-07-10 00:11] LABS: CORONAVIRUS COVID-19 NAA NEGATIVE (NEGATIVE); INFLUENZA A NAA NEGATIVE (NEGATIVE)
[2022-07-10] MEDS ORDERED: LORazepam 1 MG Tab PO PRN (00:43)
[2022-07-10] MEDS ORDERED: Ondansetron 4 MG Tab.DIS PO PRN (00:51)
[2022-07-10] MEDS ORDERED: Albuterol/Ipratropium 3.0-0.5 MG/3 ML Neb Soln NEB PRN (00:56)
[2022-07-10] MEDS ORDERED: Acetaminophen/oxyCODONE 325-5 MG Tab PO PRN (00:58)
[2022-07-10] MEDS: methylPREDNISolone Sodium Succinate 40 MG/1 ML SDV IVPUSH SCH ×5 (01:37→23:40)
[2022-07-10] MEDS: Albuterol/Ipratropium 3.0-0.5 MG/3 ML Neb Soln NEB SCH ×6 (01:50→21:21)
[2022-07-10 06:06] LABS: BASOPHILS ABSOLUTE AUTO 0.01 K/mm3 (0.01-0.08); BASOPHILS PERCENT AUTO 0.1 % (0.1-1.2); EOSINOPHILS ABSOLUTE AUTO 0.02 K/mm3 (0.04-0.36); EOSINOPHILS PERCENT AUTO 0.3 (0.7-5.8); HEMATOCRIT 39.5 % (34.1-44.9); HEMOGLOBIN 11.5 gm/dl (11.2-15.7); IMMATURE GRAN ABSOLUTE AUTO 0.03 K/mm3 (0.00-0.10); IMMATURE GRAN PERCENT AUTO 0.4 % (<=1.0); LYMPHOCYTES ABSOLUTE AUTO 0.34 K/mm3 (1.18-3.74); LYMPHOCYTES PERCENT AUTO 4.4 % (19.3-51.7); MEAN CORPUSCULAR HEMOGLOBIN 29.7 pg (25.6-32.2); MEAN CORPUSCULAR HGB CONC 29.1 g/dl (32.2-35.5); MEAN CORPUSCULAR VOLUME 102.1 fl (79.4-94.8); MEAN PLATELET VOLUME 12.8 fl (9.4-12.3); MONOCYTES ABSOLUTE AUTO 0.18 K/mm3 (0.24-0.36); MONOCYTES PERCENT AUTO 2.3 % (4.7-12.5); NEUTROPHILS ABSOLUTE AUTO 7.13 K/mm3 (1.56-6.13); NEUTROPHILS PERCENT AUTO 92.5 % (34.0-71.1); PLATELET COUNT,PLT 136 K/mm3 (182-369); RED BLOOD CELL COUNT 3.87 M/mm3 (3.98-5.22); WHITE BLOOD CELL COUNT,WBC 7.71 K/mm3 (3.98-10.04)
[2022-07-10 06:19] LABS: ANION GAP 6.8 (5-15); CALCIUM 9.8 mg/dL (8.5-10.1); EST CRCL DRUG DOSING (CG) 33.3 mL/min; POTASSIUM,K 4.8 mEq/L (3.5-5.1)
[2022-07-10] MEDS: Pantoprazole 40 MG Tab.CR PO SCH (06:31)
[2022-07-10] MEDS: Levothyroxine 50 MCG Tab PO SCH (06:31)
[2022-07-10 07:42] LABS: SLIDE REVIEW ABNORMAL SMEAR
[2022-07-10] MEDS: Enoxaparin 40 MG/0.4 ML Syringe SUBCUT SCH (08:30)
[2022-07-10] MEDS: Furosemide 20 MG Tab PO SCH (08:30)
[2022-07-10] MEDS: Allopurinol 100 MG Tab PO SCH (08:31)
[2022-07-10] MEDS: Azithromycin 250 MG Tab PO SCH (08:31)
[2022-07-10] MEDS: Carvedilol 3.125 MG Tab PO SCH ×2 (08:31→20:28)
[2022-07-10] MEDS: Potassium Chloride 20 MEQ Tab.ER PO SCH (08:31)
[2022-07-10] MEDS: Insulin Lispro 100 Unit/ML 3 ML KwikPen SUBCUT SCH ×2 (12:44→19:12)
[2022-07-10] MEDS: Mirtazapine 15 MG Tab PO SCH (20:26)
[2022-07-10] MEDS: Acetaminophen 325 MG Tab PO PRN (20:27)
[2022-07-10] MEDS: Zolpidem 10 MG Tab PO SCH (20:28)
[2022-07-10] MEDS: atorvaSTATin 20 MG Tab PO SCH (20:28)
[2022-07-11] MEDS: Albuterol/Ipratropium 3.0-0.5 MG/3 ML Neb Soln NEB SCH ×6 (01:00→21:45)
[2022-07-11] MEDS: Levothyroxine 50 MCG Tab PO SCH (06:23)
[2022-07-11] MEDS: methylPREDNISolone Sodium Succinate 40 MG/1 ML SDV IVPUSH SCH ×2 (06:23→15:05)
[2022-07-11] MEDS: Pantoprazole 40 MG Tab.CR PO SCH (06:23)
[2022-07-11] MEDS: Insulin Lispro 100 Unit/ML 3 ML KwikPen SUBCUT SCH ×3 (07:23→16:46)
[2022-07-11] MEDS ORDERED: Furosemide 40 MG/4 ML VIAL IVPUSH ONE (09:09)
[2022-07-11] MEDS: Furosemide 20 MG Tab PO SCH (09:10)
[2022-07-11] MEDS: Enoxaparin 40 MG/0.4 ML Syringe SUBCUT SCH (09:18)
[2022-07-11] MEDS: Carvedilol 3.125 MG Tab PO SCH ×2 (09:19→21:40)
[2022-07-11] MEDS: Azithromycin 250 MG Tab PO SCH (09:20)
[2022-07-11] MEDS: Potassium Chloride 20 MEQ Tab.ER PO SCH (09:20)
[2022-07-11] MEDS: Allopurinol 100 MG Tab PO SCH (09:20)
[2022-07-11] MEDS: Zolpidem 10 MG Tab PO SCH (21:38)
[2022-07-11] MEDS: atorvaSTATin 20 MG Tab PO SCH (21:39)
[2022-07-11] MEDS: Mirtazapine 15 MG Tab PO SCH (21:41)
[2022-07-12] MEDS: methylPREDNISolone Sodium Succinate 40 MG/1 ML SDV IVPUSH SCH ×4 (00:12→23:25)
[2022-07-12] MEDS: Albuterol/Ipratropium 3.0-0.5 MG/3 ML Neb Soln NEB SCH ×6 (01:14→21:31)
[2022-07-12] MEDS: Levothyroxine 50 MCG Tab PO SCH (06:38)
[2022-07-12] MEDS: Pantoprazole 40 MG Tab.CR PO SCH (06:38)
[2022-07-12] MEDS: Insulin Lispro 100 Unit/ML 3 ML KwikPen SUBCUT SCH ×3 (07:54→17:04)
[2022-07-12] MEDS ORDERED: Melatonin 3 MG Tab PO PRN (08:29)
[2022-07-12] MEDS: Enoxaparin 40 MG/0.4 ML Syringe SUBCUT SCH (08:38)
[2022-07-12] MEDS: Azithromycin 250 MG Tab PO SCH (08:39)
[2022-07-12] MEDS: Allopurinol 100 MG Tab PO SCH (08:39)
[2022-07-12] MEDS: Potassium Chloride 20 MEQ Tab.ER PO SCH (08:39)
[2022-07-12] MEDS: Carvedilol 3.125 MG Tab PO SCH ×2 (08:41→20:15)
[2022-07-12] MEDS: Furosemide 20 MG Tab PO SCH (08:41)
[2022-07-12] MEDS: Acetaminophen 325 MG Tab PO PRN (20:12)
[2022-07-12] MEDS: Mirtazapine 15 MG Tab PO SCH (20:14)
[2022-07-12] MEDS: atorvaSTATin 20 MG Tab PO SCH (20:15)
[2022-07-13] MEDS: Albuterol/Ipratropium 3.0-0.5 MG/3 ML Neb Soln NEB SCH ×6 (02:09→21:53)
[2022-07-13 05:54] LABS: EOSINOPHILS ABSOLUTE AUTO 0.01 K/mm3 (0.04-0.36); EOSINOPHILS PERCENT AUTO 0.1 (0.7-5.8); HEMATOCRIT 35.8 % (34.1-44.9); HEMOGLOBIN 10.6 gm/dl (11.2-15.7); IMMATURE GRAN ABSOLUTE AUTO 0.03 K/mm3 (0.00-0.10); IMMATURE GRAN PERCENT AUTO 0.4 % (<=1.0); LYMPHOCYTES ABSOLUTE AUTO 0.57 K/mm3 (1.18-3.74); LYMPHOCYTES PERCENT AUTO 7.8 % (19.3-51.7); MEAN CORPUSCULAR HEMOGLOBIN 29.4 pg (25.6-32.2); MEAN CORPUSCULAR HGB CONC 29.6 g/dl (32.2-35.5); MEAN CORPUSCULAR VOLUME 99.2 fl (79.4-94.8); MEAN PLATELET VOLUME 12.1 fl (9.4-12.3); MONOCYTES ABSOLUTE AUTO 0.32 K/mm3 (0.24-0.36); MONOCYTES PERCENT AUTO 4.4 % (4.7-12.5); NEUTROPHILS ABSOLUTE AUTO 6.42 K/mm3 (1.56-6.13); NEUTROPHILS PERCENT AUTO 87.3 % (34.0-71.1); PLATELET COUNT,PLT 156 K/mm3 (182-369); RED BLOOD CELL COUNT 3.61 M/mm3 (3.98-5.22); WHITE BLOOD CELL COUNT,WBC 7.35 K/mm3 (3.98-10.04)
[2022-07-13 05:56] LABS: A/G RATIO 0.8 (1-2); ALBUMIN 2.9 g/dl (3.4-5.0); BILIRUBIN TOTAL 0.4 mg/dL (0.2-1.0); CALCIUM 9.5 mg/dL (8.5-10.1); EST CRCL DRUG DOSING (CG) 33.3 mL/min; POTASSIUM,K 5.2 mEq/L (3.5-5.1); PROTEIN TOTAL,TP 6.6 g/dl (6.4-8.2)
[2022-07-13 06:07] LABS: ANION GAP 3.2 (5-15)
[2022-07-13 06:14] LABS: SLIDE REVIEW ABNORMAL SMEAR
[2022-07-13] MEDS: Pantoprazole 40 MG Tab.CR PO SCH (06:25)
[2022-07-13] MEDS: Levothyroxine 50 MCG Tab PO SCH (06:25)
[2022-07-13] MEDS: methylPREDNISolone Sodium Succinate 40 MG/1 ML SDV IVPUSH SCH ×4 (06:26→23:34)
[2022-07-13] MEDS: Insulin Lispro 100 Unit/ML 3 ML KwikPen SUBCUT SCH ×3 (07:41→17:37)
[2022-07-13] MEDS: Potassium Chloride 20 MEQ Tab.ER PO SCH (08:46)
[2022-07-13] MEDS: Azithromycin 250 MG Tab PO SCH (08:46)
[2022-07-13] MEDS: Allopurinol 100 MG Tab PO SCH (08:46)
[2022-07-13] MEDS: Furosemide 20 MG Tab PO SCH (08:46)
[2022-07-13] MEDS: Carvedilol 3.125 MG Tab PO SCH ×2 (08:47→20:45)
[2022-07-13] MEDS: Enoxaparin 40 MG/0.4 ML Syringe SUBCUT SCH (08:47)
[2022-07-13] MEDS ORDERED: Furosemide 40 MG/4 ML VIAL IVPUSH ONE (09:33)
[2022-07-13] MEDS: atorvaSTATin 20 MG Tab PO SCH (20:45)
[2022-07-13] MEDS: Mirtazapine 15 MG Tab PO SCH (20:46)
[2022-07-13] MEDS: Acetaminophen 325 MG Tab PO PRN (20:46)
[2022-07-14] MEDS: Albuterol/Ipratropium 3.0-0.5 MG/3 ML Neb Soln NEB SCH ×6 (02:59→21:35)
[2022-07-14 05:20] LABS: BASOPHILS ABSOLUTE AUTO 0.01 K/mm3 (0.01-0.08); BASOPHILS PERCENT AUTO 0.1 % (0.1-1.2); EOSINOPHILS PERCENT AUTO 0 (0.7-5.8); HEMATOCRIT 38.4 % (34.1-44.9); HEMOGLOBIN 11.7 gm/dl (11.2-15.7); IMMATURE GRAN ABSOLUTE AUTO 0.09 K/mm3 (0.00-0.10); IMMATURE GRAN PERCENT AUTO 1.1 % (<=1.0); LYMPHOCYTES ABSOLUTE AUTO 0.55 K/mm3 (1.18-3.74); LYMPHOCYTES PERCENT AUTO 6.9 % (19.3-51.7); MEAN CORPUSCULAR HEMOGLOBIN 29.6 pg (25.6-32.2); MEAN CORPUSCULAR HGB CONC 30.5 g/dl (32.2-35.5); MEAN CORPUSCULAR VOLUME 97.2 fl (79.4-94.8); MEAN PLATELET VOLUME 12.1 fl (9.4-12.3); MONOCYTES ABSOLUTE AUTO 0.42 K/mm3 (0.24-0.36); MONOCYTES PERCENT AUTO 5.3 % (4.7-12.5); NEUTROPHILS ABSOLUTE AUTO 6.92 K/mm3 (1.56-6.13); NEUTROPHILS PERCENT AUTO 86.6 % (34.0-71.1); PLATELET COUNT,PLT 171 K/mm3 (182-369); RED BLOOD CELL COUNT 3.95 M/mm3 (3.98-5.22); WHITE BLOOD CELL COUNT,WBC 7.99 K/mm3 (3.98-10.04)
[2022-07-14 05:48] LABS: A/G RATIO 0.8 (1-2); ALBUMIN 3.1 g/dl (3.4-5.0); ANION GAP 1.7 (5-15); BILIRUBIN TOTAL 0.5 mg/dL (0.2-1.0); CALCIUM 9.7 mg/dL (8.5-10.1); EST CRCL DRUG DOSING (CG) 33.3 mL/min; MAGNESIUM 2.4 mg/dL (1.8-2.4); POTASSIUM,K 4.7 mEq/L (3.5-5.1); PROTEIN TOTAL,TP 7.1 g/dl (6.4-8.2)
[2022-07-14] MEDS: Pantoprazole 40 MG Tab.CR PO SCH (06:37)
[2022-07-14] MEDS: Levothyroxine 50 MCG Tab PO SCH (06:37)
[2022-07-14] MEDS: Insulin Lispro 100 Unit/ML 3 ML KwikPen SUBCUT SCH ×3 (07:47→17:16)
[2022-07-14] MEDS: Allopurinol 100 MG Tab PO SCH (10:18)
[2022-07-14] MEDS: Potassium Chloride 20 MEQ Tab.ER PO SCH (10:18)
[2022-07-14] MEDS: Azithromycin 250 MG Tab PO SCH (10:19)
[2022-07-14] MEDS: Enoxaparin 40 MG/0.4 ML Syringe SUBCUT SCH (10:19)
[2022-07-14] MEDS: Furosemide 20 MG Tab PO SCH (10:19)
[2022-07-14] MEDS: Carvedilol 3.125 MG Tab PO SCH ×2 (10:19→20:29)
[2022-07-14] MEDS: methylPREDNISolone Sodium Succinate 40 MG/1 ML SDV IVPUSH SCH (11:35)
[2022-07-14] MEDS: atorvaSTATin 20 MG Tab PO SCH (20:27)
[2022-07-14] MEDS: Mirtazapine 15 MG Tab PO SCH (20:28)
[2022-07-15] MEDS: methylPREDNISolone Sodium Succinate 40 MG/1 ML SDV IVPUSH SCH ×2 (00:47→12:20)
[2022-07-15] MEDS: Albuterol/Ipratropium 3.0-0.5 MG/3 ML Neb Soln NEB SCH ×6 (02:48→21:17)
[2022-07-15] MEDS: Pantoprazole 40 MG Tab.CR PO SCH (05:32)
[2022-07-15] MEDS: Levothyroxine 50 MCG Tab PO SCH (05:32)
[2022-07-15 06:19] LABS: BASOPHILS ABSOLUTE AUTO 0.01 K/mm3 (0.01-0.08); BASOPHILS PERCENT AUTO 0.1 % (0.1-1.2); EOSINOPHILS ABSOLUTE AUTO 0.01 K/mm3 (0.04-0.36); EOSINOPHILS PERCENT AUTO 0.1 (0.7-5.8); HEMATOCRIT 36.8 % (34.1-44.9); HEMOGLOBIN 11.1 gm/dl (11.2-15.7); IMMATURE GRAN ABSOLUTE AUTO 0.15 K/mm3 (0.00-0.10); IMMATURE GRAN PERCENT AUTO 1.5 % (<=1.0); LYMPHOCYTES ABSOLUTE AUTO 1.45 K/mm3 (1.18-3.74); LYMPHOCYTES PERCENT AUTO 14.1 % (19.3-51.7); MEAN CORPUSCULAR HEMOGLOBIN 29.4 pg (25.6-32.2); MEAN CORPUSCULAR HGB CONC 30.2 g/dl (32.2-35.5); MEAN CORPUSCULAR VOLUME 97.6 fl (79.4-94.8); MEAN PLATELET VOLUME 12.2 fl (9.4-12.3); MONOCYTES ABSOLUTE AUTO 1.08 K/mm3 (0.24-0.36); MONOCYTES PERCENT AUTO 10.5 % (4.7-12.5); NEUTROPHILS ABSOLUTE AUTO 7.57 K/mm3 (1.56-6.13); NEUTROPHILS PERCENT AUTO 73.7 % (34.0-71.1); PLATELET COUNT,PLT 166 K/mm3 (182-369); RED BLOOD CELL COUNT 3.77 M/mm3 (3.98-5.22); WHITE BLOOD CELL COUNT,WBC 10.27 K/mm3 (3.98-10.04)
[2022-07-15 06:27] LABS: ANION GAP 2.5 (5-15); CALCIUM 9.5 mg/dL (8.5-10.1); EST CRCL DRUG DOSING (CG) 33.3 mL/min; POTASSIUM,K 4.5 mEq/L (3.5-5.1)
[2022-07-15] MEDS: Insulin Lispro 100 Unit/ML 3 ML KwikPen SUBCUT SCH ×3 (07:57→17:16)
[2022-07-15] MEDS: Azithromycin 250 MG Tab PO SCH (08:17)
[2022-07-15] MEDS: Potassium Chloride 20 MEQ Tab.ER PO SCH (08:18)
[2022-07-15] MEDS: Enoxaparin 40 MG/0.4 ML Syringe SUBCUT SCH (08:19)
[2022-07-15] MEDS: Carvedilol 3.125 MG Tab PO SCH ×2 (08:19→20:38)
[2022-07-15] MEDS: Furosemide 20 MG Tab PO SCH (08:20)
[2022-07-15] MEDS: Allopurinol 100 MG Tab PO SCH (08:20)
[2022-07-15] MEDS: Mirtazapine 15 MG Tab PO SCH (20:36)
[2022-07-15] MEDS: atorvaSTATin 20 MG Tab PO SCH (20:36)
[2022-07-15] MEDS: Acetaminophen 325 MG Tab PO PRN (20:37)
[2022-07-16] MEDS: methylPREDNISolone Sodium Succinate 40 MG/1 ML SDV IVPUSH SCH (00:07)
[2022-07-16] MEDS: Albuterol/Ipratropium 3.0-0.5 MG/3 ML Neb Soln NEB SCH ×3 (02:07→09:50)
[2022-07-16 05:57] LABS: EOSINOPHILS ABSOLUTE AUTO 0.02 K/mm3 (0.04-0.36); EOSINOPHILS PERCENT AUTO 0.2 (0.7-5.8); HEMATOCRIT 38.3 % (34.1-44.9); HEMOGLOBIN 11.4 gm/dl (11.2-15.7); LYMPHOCYTES ABSOLUTE AUTO 0.97 K/mm3 (1.18-3.74); LYMPHOCYTES PERCENT AUTO 10.1 % (19.3-51.7); MEAN CORPUSCULAR HEMOGLOBIN 29.5 pg (25.6-32.2); MEAN CORPUSCULAR HGB CONC 29.8 g/dl (32.2-35.5); MEAN CORPUSCULAR VOLUME 99.2 fl (79.4-94.8); MEAN PLATELET VOLUME 12.3 fl (9.4-12.3); MONOCYTES ABSOLUTE AUTO 0.82 K/mm3 (0.24-0.36); MONOCYTES PERCENT AUTO 8.6 % (4.7-12.5); NEUTROPHILS ABSOLUTE AUTO 7.67 K/mm3 (1.56-6.13); NEUTROPHILS PERCENT AUTO 80.1 % (34.0-71.1); PLATELET COUNT,PLT 155 K/mm3 (182-369); RED BLOOD CELL COUNT 3.86 M/mm3 (3.98-5.22); WHITE BLOOD CELL COUNT,WBC 9.58 K/mm3 (3.98-10.04)
[2022-07-16] MEDS: Levothyroxine 50 MCG Tab PO SCH (06:05)
[2022-07-16] MEDS: Pantoprazole 40 MG Tab.CR PO SCH (06:05)
[2022-07-16 06:24] LABS: A/G RATIO 0.8 (1-2); ALBUMIN 2.9 g/dl (3.4-5.0); BILIRUBIN TOTAL 0.5 mg/dL (0.2-1.0); BUN/CREATININE RATIO 51.1 (14-18); CALCIUM 9.1 mg/dL (8.5-10.1); CREATININE 0.9 mg/dL (0.55-1.02); MAGNESIUM 2.5 mg/dL (1.8-2.4); POTASSIUM,K 4.4 mEq/L (3.5-5.1); PROTEIN TOTAL,TP 6.4 g/dl (6.4-8.2)
[2022-07-16 06:47] LABS: ANION GAP 7.4 (5-15)
[2022-07-16] MEDS: Insulin Lispro 100 Unit/ML 3 ML KwikPen SUBCUT SCH (07:58)
[2022-07-16] MEDS: Carvedilol 3.125 MG Tab PO SCH (09:24)
[2022-07-16] MEDS: Potassium Chloride 20 MEQ Tab.ER PO SCH (09:24)
[2022-07-16] MEDS: Enoxaparin 40 MG/0.4 ML Syringe SUBCUT SCH (09:24)
[2022-07-16] MEDS: Furosemide 20 MG Tab PO SCH (09:24)
[2022-07-16] MEDS: Allopurinol 100 MG Tab PO SCH (09:24)
[2022-07-16 11:53] VITALS: BP 121/56; PULSE 81
== END 2022-07-16 12:10 | DRG 189 ==
LOC: JD.ED 21:43 → JD.MS 07-10 00:37
PROVIDERS: ADMIT Hospitalist; ATTEND Hospitalist
DX: J96.22 Acute and chronic respiratory failure with hypercapnia (principal); J44.1 Chronic obstructive pulmonary disease with (acute) exacerbation; Z68.41 Body mass index [BMI] 40.0-44.9, adult; J96.21 Acute and chronic respiratory failure with hypoxia; E88.01 Alpha-1-antitrypsin deficiency; E66.01 Morbid (severe) obesity due to excess calories; G47.33 Obstructive sleep apnea (adult) (pediatric); I48.91 Unspecified atrial fibrillation; H54.7 Unspecified visual loss; E78.00 Pure hypercholesterolemia, unspecified; I10 Essential (primary) hypertension; K21.9 Gastro-esophageal reflux disease without esophagitis; Z20.822 Contact with and (suspected) exposure to COVID-19; M10.9 Gout, unspecified; M81.0 Age-related osteoporosis without current pathological fracture; M19.90 Unspecified osteoarthritis, unspecified site; E03.9 Hypothyroidism, unspecified; Z96.649 Presence of unspecified artificial hip joint; E11.9 Type 2 diabetes mellitus without complications; Z79.890 Hormone replacement therapy; Z90.49 Acquired absence of other specified parts of digestive tract; Z95.5 Presence of coronary angioplasty implant and graft; Z88.8 Allergy status to other drugs, medicaments and biological substances; Z98.890 Other specified postprocedural states; Z79.899 Other long term (current) drug therapy
CPT/HCPCS: 0240U; 36415; 71045; 71045-26; 80048; 80053; 82803; 82947; 83605; 83735; 85025; 87040; 94640; 94667; 94668; 94761; 97116-GP; 97162-GP; 97166-GO; 97530-GO; 97530-GP; 97535-GO; 99222; 99232; 99239; 99284; 99285; A9270-GY; J1650; J1815; J1940; J2920; J2930; J7620-GY; U0002